=== PATIENT | male | born 1970 | race Caucasian/White ===

== ENCOUNTER → 2017-09-12 06:56 | Outpatient (CLI) | payer OTHER, SELFPAY ==
[2017-09-12 09:25] LABS: AST(SGOT) 19 U/L (15-37); Alanine Aminotransfer ALT/SGPT 40 U/L (16-61); Albumin, Serum 3.6 g/dL (3.2-5.0); Alkaline Phosphatase 78 U/L (45-117); Anion Gap 8 (5-15); BUN 18 mg/dL (7-18); BUN/Creat Ratio 19.8 RATIO (10-20); Chloride 105 mmol/L (98-107); Cholesterol 89 mg/dL (200); Creatinine, Serum 0.91 mg/dL (0.70-1.30); EST Glomerular Filtration Rate 96 mL/min (>60); Est Glom Filt Rate - Afr Amer 116 mL/min (>60); Globulin 3.6 g/dL (2.2-4.2); Glucose 123 mg/dL (74-106); High Density Lipoprotein 37 mg/dL; Potassium 3.9 mmol/L (3.5-5.1); Protein, Total 7.2 g/dL (6.4-8.2); Sodium Level 141 mmol/L (136-145); Thyroid Stim Hormone (TSH) 1.99 uIU/mL (0.358-3.74); Triglycerides 90 mg/dL; Very Low Density Lipoprotein 18 mg/dL (5-40)
== END ==
PROVIDERS: Family Provider Family Medicine; PCP Family Medicine; Visit Provider Family Medicine
DX: E11.65 Type 2 diabetes mellitus with hyperglycemia (principal)
CPT/HCPCS: 36415; 80053; 80061; 84443

== ENCOUNTER → 2017-12-27 08:38 | Outpatient (CLI) | payer OTHER, SELFPAY ==
[2017-12-27 09:41] LABS: Anion Gap 7 (5-15); BUN 16 mg/dL (7-18); BUN/Creat Ratio 16.4 RATIO (10-20); Calcium,Total 8.3 mg/dL (8.5-10.1); Chloride 105 mmol/L (98-107); Creatinine, Serum 0.98 mg/dL (0.70-1.30); EST Glomerular Filtration Rate 88 mL/min (>60); Est Glom Filt Rate - Afr Amer 107 mL/min (>60); Glucose 133 mg/dL (74-106); Potassium 3.9 mmol/L (3.5-5.1); Sodium Level 139 mmol/L (136-145)
== END ==
PROVIDERS: Family Provider Family Medicine; PCP Family Medicine; Visit Provider Family Medicine
DX: I10 Essential (primary) hypertension (principal)
CPT/HCPCS: 36415; 80048

== ENCOUNTER → 2018-04-02 09:42 | Outpatient (CLI) | payer OTHER, SELFPAY ==
--- NOTE | 2018-04-02 09:45 | RAD_ITS ---
HISTORY: LEFT SHOULDER PAIN AND DECREASING ROM X2 MONTHS, NKI COMPARISON: None FINDINGS: XR Shoulder 4 views No dislocation or acute fracture. The left glenohumeral relationship appears normal. No soft tissue calcifications. Left AC joint is preserved. Remote, healed fracture of the mid left clavicle. RAD/Shoulder min 2 Views IMPRESSION: 1. Negative left shoulder. 2. Remote, healed fracture of the mid left clavicle. at 0656 Reported and signed by: Kalyan Mcgraw MD Electronically Signed: Kalyan Mcgraw, at 6:54 EST Tel , Service support ,
--- OUTSIDE RECORDS SUMMARY | 2018-05-28 11:02 | XMS RPT_ITS ---
:1970 Author Organization OHIP Care Team Providers Name Role Phone Peterson Smith Attending Unavailable Peterson Smith Referring Unavailable Peetrson Smith Primary Care Unavailable Peterson Smith Attending Unavailable Peterson Smith Referring Unavailable Peterson Smith Primary Care Unavailable Peterson Smith Attending Unavailable Peterson Smith Referring Unavailable Peterson Smith Primary Care Unavailable PROBLEMS PROBLEMS DATE TYPE CONDITION / CODE ATTENDING STATUS SOURCE 04/02/2018 Unknown M75.00 - Adhesive Sarah Active Cole capsulitis of [facility] shoulder / Repository M75.00(ICD-10) PROCEDURES PROCEDURES No Procedure Records FoundRESULTS RESULTS SHOULDER MIN 2 VIEWS Observed: 04/02/2018 Status: F Source: ALAMO 9:45 AM [facility] REPOSITORY [facility] Imaging Services [address] [place] [address] Shoulder min 2 Views MR#: [id number] Acct: [id number] Name: MEDHAT CORREA Rep #: [id number] : 1970 M 48 From: Kalyan Mcgraw MD PCP: Peterson Smith MD Status: REG CLI Study: Shoulder min 2 Views Date of Exam: 04/02/18 Exam# [id number] Ordering Dr: Maximiliano Smith MD HISTORY: LEFT SHOULDER PAIN AND DECREASING ROM X2 MONTHS, NKI COMPARISON: None FINDINGS: XR Shoulder 4 views No dislocation or acute fracture. The left glenohumeral relationship appears normal. No soft tissue calcifications. Left AC joint is preserved. Remote, healed fracture of the mid left clavicle. RAD/Shoulder min 2 Views IMPRESSION: 1. Negative left shoulder. 2. Remote, healed fracture of the mid left clavicle. at 0656 Reported and signed by: Kalyan Mcgraw MD Electronically Signed: Kalyan Mcgraw, at 6:54 EST Tel , Service support , CC: Peterson Smith MD Seismograph Computer: Signed BASIC METABOLIC Collected: 12/27/2017 Status: F Source: COLE PROFILE (BMP) 8:45 AM [facility] REPOSITORY Order Comment: Order Date: 09/25/17 Order Info: [id number] - BMP TYPE CODE TESTS RESULT OUT OF RANGE REFERENCE UNITS LAB L501.0100 74-106 mg/dL High GLU 133 Result Comment: Fasting Glucose result greater than or equal to 126 mg/dL suggests DIABETES MELLITUS per A.D.A. criteria. Please note revised GLUCOSE reference range effective 2017. LAB L501.1000 7-18 mg/dL Normal BUN 16 LAB L501.1100 0.70-1.30 mg/dL Normal CREAT,SERUM 0.98 Result Comment: The validity of the calculated GFR AND GFRAA in patients over 70 years has not been determined. Clinical correlation is essential. LAB L501.1110 >60 mL/min Normal EST GFR 88 Result Comment: Non- GFR Calc LAB L501.1115 >60 mL/min Normal EST GFR - AA 107 Result Comment: GFR Calc LAB L501.1300 10-20 RATIO Normal BUN/CRE 16.4 LAB L501.2200 8.5-10.1 mg/dL Low CA 8.3 LAB L501.5300 136-145 mmol/L NA Normal 139 LAB L501.5600 3.5-5.1 mmol/L K Normal 3.9 LAB L501.5900 98-107 mmol/L CL Normal 105 LAB L501.6100 21.0-32.0 mmol/L Normal CO2 27.0 LAB L501.6200 5-15 Normal GAP 7 Performed By: #### L500.2500 #### [facility] [place], [address] COMPREHENSIVE METABOLIC Collected: 09/12/2017 Status: F Source: COLE GLOVER 7:02 AM [facility] REPOSITORY Order Comment: Order Date: 05/22/17 Order Info: [id number] - CMP Order Info: [id number] - LIPID Order Info: 3016-3 - TSH TYPE CODE TESTS RESULT OUT OF RANGE REFERENCE UNITS LAB L501.0100 74-106 mg/dL High GLU 123 Result Comment: Fasting Glucose result from 100 to 125 mg/dL suggests IMPAIRED HOMEOSTASIS per A.D.A. criteria. Please note revised GLUCOSE reference range effective 2017. LAB L501.1000 7-18 mg/dL Normal BUN 18 LAB L501.1100 0.70-1.30 mg/dL Normal CREAT,SERUM 0.91 Result Comment: The validity of the calculated GFR AND GFRAA in patients over 70 years has not been determined. Clinical correlation is essential. LAB L501.1110 >60 mL/min Normal EST GFR 96 Result Comment: Non- GFR Calc LAB L501.1115 >60 mL/min Normal EST GFR - AA 116 Result Comment: GFR Calc LAB L501.1300 10-20 RATIO Normal BUN/CRE 19.8 LAB L501.1500 6.4-8.2 g/dL T Normal PROT 7.2 LAB L501.1800 3.2-5.0 g/dL Normal ALB 3.6 LAB L501.1950 2.2-4.2 g/dL Normal GLOB 3.6 LAB L501.2000 0.9-2.4 RATIO Normal A/G 1.0 LAB L501.2200 8.5-10.1 mg/dL Low CA 8.0 LAB L501.4100 15-37 U/L Normal AST 19 LAB L501.4305 45-117 U/L Normal ALK P 78 LAB L501.4405 16-61 U/L Normal ALT 40 LAB L501.4600 0.20-1.00 mg/dL T Normal BILI 0.80 LAB L501.5300 136-145 mmol/L NA Normal 141 LAB L501.5600 3.5-5.1 mmol/L K Normal 3.9 LAB L501.5900 98-107 mmol/L CL Normal 105 LAB L501.6100 21.0-32.0 mmol/L Normal CO2 28.0 LAB L501.6200 5-15 Normal GAP 8 Performed By: #### L500.4050, L500.4100, L501.9520 #### [facility] [address] [place], [place], [address] LIPID PROFILE Collected: 09/12/2017 Status: F Source: COLE 7:02 AM [facility] REPOSITORY Order Comment: Order Date: 05/22/17 Order Info: [id number] - CMP Order Info: [id number] - LIPID Order Info: [id number] - TSH TYPE CODE TESTS RESULT OUT OF RANGE REFERENCE UNITS LAB L501.4900 200 mg/dL Normal CHOL 89 Result Comment: <200 mg/dL Desirable 200-240 mg/dL Borderline >240 mg/dL High Risk LAB L501.5000 mg/dL Normal TRIG 90 Result Comment: The drugs N-Acetylcysteine and Metamizole may falsely depress this assay. Serum Triglycerides Reference Interval Normal <150 mg/dL Borderline high 150 - 199 mg/dL High 200 - 499 mg/dL Very High > or = 500 mg/dL LAB L501.6400 mg/dL Low HDL 37 Result Comment: The drugs N-Acetylcysteine and Metamizole may falsely depress this assay. Reference Range HDL <40 mg/dL Low HDL Cholesterol HDL >or= 60 mg/dL High HDL Cholesterol LAB L501.6500 0-130 mg/dL Normal LDL 34 LAB L501.6600 5-40 mg/dL Normal VLDL 18 Performed By: #### L500.4050, L500.4100, L501.9520 #### [facility] [address] [place], [place], [address] THYROID STIM HORMONE Collected: 09/12/2017 Status: F Source: COLE (TSH) 7:02 AM [facility] REPOSITORY Order Comment: Order Date: 05/22/17 Order Info: [id number] - CMP Order Info: [id number] - LIPID Order Info: [id number] - TSH TYPE CODE TESTS RESULT OUT OF RANGE REFERENCE UNITS LAB L501.9520 0.358-3.74 uIU/mL Normal TSH 1.99 Performed By: #### L500.4050, L500.4100, L501.9520 #### [facility] [address] [place], [address] ALLERGIES ALLERGIES No Allergies Records FoundENCOUNTERS ENCOUNTERS ADMIT/DISCHARGE ACCOUNT ADMITTING ENCOUNTER LOCATION SOURCE NUMBER CLASS 04/02/2018 [id number] [facility] ing:MTRAD Repository 12/27/2017 [id number] Ambulatory [facility] 4 [facility] ing:LAB Repository 09/12/2017 [id number] [facility] 6 [facility] ing:LAB Repository PAYERS PAYERS ENCOUNTER GUARANTOR PAYER SUBSCRIBER SOURCE 04/02/2018 Rivera Primary Medhat Gonzales [id number] Insurance:[facility]: [facility] Number: [id number] [facility] [address]Faf: [id number] Repository Date:[id number] [address] [address]RY: 04/02/2018 Secondary NOT GIVENUNK Cole Insurance:SELF PAY [facility] Number: Effective Repository Date:2018-04-02 12/27/2017 Rivera Primary Medhat Gonzales [id number] Insurance:[facility]: [facility] Number: [id number] [facility] [address]Fgu: [id number] Repository Date:3925-44-69QC [address] () [address] [address]BE: 12/27/2017 Secondary NOT GIVENUNK Cole Insurance:SELF PAY [facility] Number: Effective Repository Date:2017-12-27 09/12/2017 Rivera Primary Mehdat Gonzales [id number] Insurance:[facility]: [facility] Number: [id number] [facility] [address]Fyz: [id number] Repository [phone] Date:1249-73-26AK [address] () [id number] [address]IV: 09/12/2017 Secondary NOT GIVENUNK [place] Insurance:SELF PAY [facility]: Effective Repository Date:2017-09-12
== END ==
PROVIDERS: Family Provider Family Medicine; PCP Family Medicine; Referring Provider Family Medicine; Visit Provider Family Medicine
DX: M75.02 Adhesive capsulitis of left shoulder (principal)
CPT/HCPCS: 73030

== ENCOUNTER → 2018-09-23 07:17 | Outpatient (CLI) | payer OTHER, SELFPAY ==
[2018-09-23 08:34] LABS: Anion Gap 6 (5-15); BUN 15 mg/dL (7-18); BUN/Creat Ratio 15.8 RATIO (10-20); Calcium,Total 8.8 mg/dL (8.5-10.1); Chloride 106 mmol/L (98-107); Cholesterol 110 mg/dL (200); Creatinine, Serum 0.95 mg/dL (0.70-1.30); EST Glomerular Filtration Rate 91 mL/min (>60); Est Glom Filt Rate - Afr Amer 110 mL/min (>60); Glucose 145 mg/dL (74-106); High Density Lipoprotein 39 mg/dL; Potassium 4.1 mmol/L (3.5-5.1); Sodium Level 142 mmol/L (136-145); Triglycerides 93 mg/dL; Very Low Density Lipoprotein 19 mg/dL (5-40)
== END ==
PROVIDERS: Family Provider Family Medicine; PCP Family Medicine; Referring Provider Family Medicine; Visit Provider Family Medicine
DX: I10 Essential (primary) hypertension (principal)
CPT/HCPCS: 36415; 80048; 80061

== ENCOUNTER → 2019-07-06 07:59 | Outpatient (CLI) | payer OTHER, SELFPAY ==
[2019-07-06 08:48] LABS: AST(SGOT) 21 U/L (15-37); Alanine Aminotransfer ALT/SGPT 53 U/L (16-61); Albumin, Serum 3.7 g/dL (3.2-5.0); Alkaline Phosphatase 73 U/L (45-117); Anion Gap 4 (5-15); BUN 21 mg/dL (7-18); BUN/Creat Ratio 19.3 RATIO (10-20); Calcium,Total 8.6 mg/dL (8.5-10.1); Chloride 104 mmol/L (98-107); Cholesterol 167 mg/dL (200); Creatinine, Serum 1.09 mg/dL (0.70-1.30); EST Glomerular Filtration Rate 77 mL/min (>60); Est Glom Filt Rate - Afr Amer 93 mL/min (>60); Globulin 3.7 g/dL (2.2-4.2); Glucose 167 mg/dL (74-106); High Density Lipoprotein 42 mg/dL; Potassium 4.4 mmol/L (3.5-5.1); Protein, Total 7.4 g/dL (6.4-8.2); Sodium Level 138 mmol/L (136-145); Triglycerides 139 mg/dL; Very Low Density Lipoprotein 28 mg/dL (5-40)
== END ==
PROVIDERS: PCP Family Medicine; Referring Provider Family Medicine; Visit Provider Family Medicine
DX: E11.65 Type 2 diabetes mellitus with hyperglycemia (principal)
CPT/HCPCS: 36415; 80053; 80061

== ENCOUNTER → 2020-03-02 08:35 | Outpatient (CLI) | payer OTHER, SELFPAY ==
[2020-03-02 10:56] LABS: AST(SGOT) 21 U/L (15-37); Alanine Aminotransfer ALT/SGPT 56 U/L (16-61); Albumin, Serum 3.8 g/dL (3.2-5.0); Alkaline Phosphatase 81 U/L (45-117); Anion Gap 7 (5-15); BUN 19 mg/dL (7-18); Calcium,Total 8.7 mg/dL (8.5-10.1); Chloride 103 mmol/L (98-107); Cholesterol 112 mg/dL (200); Creatinine, Serum 1.12 mg/dL (0.70-1.30); EST Glomerular Filtration Rate 74 mL/min (>60); Est Glom Filt Rate - Afr Amer 90 mL/min (>60); Globulin 3.7 g/dL (2.2-4.2); Glucose 203 mg/dL (74-106); High Density Lipoprotein 40 mg/dL; Potassium 4.1 mmol/L (3.5-5.1); Protein, Total 7.5 g/dL (6.4-8.2); Sodium Level 138 mmol/L (136-145); Thyroid Stim Hormone (TSH) 1.47 uIU/mL (0.358-3.74); Triglycerides 208 mg/dL; Very Low Density Lipoprotein 42 mg/dL (5-40)
== END ==
PROVIDERS: PCP Family Medicine; Referring Provider Family Medicine; Visit Provider Family Medicine
DX: E11.65 Type 2 diabetes mellitus with hyperglycemia (principal)
CPT/HCPCS: 36415; 80053; 80061; 84403; 84443

== ENCOUNTER → 2021-05-03 16:29 | Outpatient (CLI) | payer OTHER, SELFPAY | PROVIDERS: PCP Family Medicine; Visit Provider Family Medicine | DX: U07.1 COVID-19 (principal) | CPT/HCPCS: 87635; U0003; U0005 ==

== ENCOUNTER 2021-08-08 07:14 | Outpatient (CLI) | payer OTHER, SELFPAY ==
[2021-08-08 09:37] LABS: ALB/GLOB Ratio 1.1 RATIO (0.9-2.4); AST(SGOT) 12 U/L (15-37); Alanine Aminotransfer ALT/SGPT 31 U/L (16-61); Albumin, Serum 3.7 g/dL (3.2-5.0); Alkaline Phosphatase 69 U/L (45-117); Anion Gap 5 (5-15); BUN 19 mg/dL (7-18); BUN/Creat Ratio 19.5 RATIO (10-20); Calcium,Total 8.4 mg/dL (8.5-10.1); Chloride 107 mmol/L (98-107); Cholesterol 114 mg/dL (200); Creatinine, Serum 0.97 mg/dL (0.70-1.30); EST Glomerular Filtration Rate 87 mL/min (>60); Est Glom Filt Rate - Afr Amer 105 mL/min (>60); Globulin 3.4 g/dL (2.2-4.2); Glucose 154 mg/dL (74-106); High Density Lipoprotein 39 mg/dL; Potassium 3.7 mmol/L (3.5-5.1); Protein, Total 7.1 g/dL (6.4-8.2); Sodium Level 139 mmol/L (136-145); Thyroid Stim Hormone (TSH) 1.58 uIU/mL (0.358-3.74); Triglycerides 140 mg/dL; Very Low Density Lipoprotein 28 mg/dL (5-40)
== END 2021-08-08 23:59 | disposition home or self-care (01) ==
LOC: LAB 07:16
PROVIDERS: PCP Family Medicine; Referring Provider Family Medicine; Visit Provider Family Medicine
DX: E11.9 Type 2 diabetes mellitus without complications (principal)
CPT/HCPCS: 36415; 80053; 80061; 84403; 84443

== ENCOUNTER → 2022-04-10 | Outpatient (CLI) | payer OTHER, SELFPAY ==
--- NOTE | 2022-04-10 | LES_PTH ---
PATIENT: URBANO CORREA [facility][id number] AGE/SX: 52/M ROOM: RE04/10/[address]: Dr. Peterson Smith MD : 1970 BED: DIS: 04/10/2022 SPEC #: [id number] RECD: 04/10/22 11:50 STATUS: ALLYSON CASTANON #: [id number] ALTHEA: 04/10/22 00:[address]: Peterson Smith DEPT: SURGICAL PATHOLOGY RECD BY: Gigi Bull Tissues: Skin of upper extremity and shoulder Procedures: Surgery Specimen Level IV HEADER OPERATION: Punch biopsy PRE-OP DIAGNOSIS: Upper left shoulder ? SCC TISSUE SUBMITTED: Upper left shoulder MICROSCOPIC DIAGNOSIS Lesion of upper left shoulder, punch biopsy: Compound nevus. AM:kerrie 04/11/2022 COMMENT Case has been reviewed in consultation with Dr. Nava who concurs with the above diagnosis. IDC:SJ MICROSCOPIC DESCRIPTION Slides are reviewed. GROSS DESCRIPTION Received is one container labeled with the patient's name and not further designated. The specimen consists of a punch biopsy of chiu-white skin measuring 0.4 cm in length and 0.5 cm in diameter. The entire specimen is submitted in one cassette. / RAJI:kerrie 04/10/2022 TC:5 [facility]: [id number]
== END | disposition home or self-care (01) ==
LOC: LABSPEC 09:49
PROVIDERS: PCP Family Medicine; Referring Provider Family Medicine; Visit Provider Family Medicine
DX: L98.9 Disorder of the skin and subcutaneous tissue, unspecified (principal)
CPT/HCPCS: 88305

== ENCOUNTER → 2023-08-07 | Outpatient (CLI) | payer OTHER, SELFPAY ==
[2023-08-07 11:27] LABS: ALB/GLOB Ratio 1.1 RATIO (0.9-2.4); AST(SGOT) 14 U/L (15-37); Alanine Aminotransfer ALT/SGPT 38 U/L (16-61); Albumin, Serum 3.8 g/dL (3.2-5.0); Alkaline Phosphatase 74 U/L (45-117); Anion Gap 3 (5-15); BUN 19 mg/dL (7-18); BUN/Creat Ratio 18.6 RATIO (10-20); Calcium,Total 8.7 mg/dL (8.5-10.1); Chloride 107 mmol/L (98-107); Cholesterol 109 mg/dL (200); Creatinine, Serum 1.02 mg/dL (0.70-1.30); EST Glomerular Filtration Rate 82 mL/min (>60); Est Glom Filt Rate - Afr Amer 99 mL/min (>60); Globulin 3.5 g/dL (2.2-4.2); Glucose 130 mg/dL (74-106); High Density Lipoprotein 41 mg/dL; PSA,Total - Annual Screen 4.06 ng/mL (0.00-4.00); Potassium 4.3 mmol/L (3.5-5.1); Protein, Total 7.3 g/dL (6.4-8.2); Sodium Level 138 mmol/L (136-145); Thyroid Stim Hormone (TSH) 1.28 uIU/mL (0.358-3.74); Triglycerides 103 mg/dL; Very Low Density Lipoprotein 21 mg/dL (5-40)
== END | disposition home or self-care (01) ==
LOC: LAB 10:34
PROVIDERS: PCP Family Medicine; Referring Provider Family Medicine; Visit Provider Family Medicine
DX: E11.65 Type 2 diabetes mellitus with hyperglycemia (principal); Z12.5 Encounter for screening for malignant neoplasm of prostate
CPT/HCPCS: 36415; 80053; 80061; 84153; 84403; 84443; G0103

== ENCOUNTER → 2024-06-02 | Outpatient (CLI) | payer OTHER, SELFPAY ==
[2024-06-02 11:15] LABS: Absolute Lymphocyte Count 1.31 X10^3/uL (0.83-4.51); Absolute Neutrophil Count 6.6 X10^3/uL (2.0-7.7); Basophil# 0.06 X10^3/uL; Basophil% 0.7 % (0-1); Eosinophil# 0.07 X10^3/uL; Eosinophils% 0.8 % (0-5); Hematocrit 50.1 % (40-54); Hemoglobin 17.8 g/dL (13.0-16.5); Lymphocyte # 1.31 X10^3/ul (0.83-4.51); Lymphocyte % 15.1 % (19-41); Mean Corp Hgb Conc 35.5 g/dL (32-36); Mean Corpuscular Hgb 31.7 pg (27.0-32.0); Mean Corpuscular Volume 89.3 fL (80-94); Mean Platelet Vol. 10.4 fl (6.2-12.0); Monocyte# 0.52 X10^3/uL; NRBC Flagged by Analyzer 0 % (0-5); Neutrophil # 6.61 X10^3/uL (2.7-7.7); Neutrophil % 76.2 % (47-70); Platelet Count 163 K/mm3 (150-450); RBC Distribution Width CV 12.4 % (11.6-14.6); RBC Distribution Width SD 40.6 fl (35.1-43.9); Red Blood Count 5.61 M/mm3 (4.6-6.2); White Blood Count 8.7 K/mm3 (4.4-11.0)
[2024-06-03 13:07] LABS: PSA, Free 0.75 ng/mL; PSA, Free % 17.1 % (.)
== END | disposition home or self-care (01) ==
LOC: LAB 10:50
PROVIDERS: Nurse Practitioner Acute Care; PCP Family Medicine; Referring Provider Family Medicine; Visit Provider Family Medicine
DX: R19.5 Other fecal abnormalities (principal); R97.20 Elevated prostate specific antigen [PSA]
CPT/HCPCS: 36415; 84153; 84154; 85025

== ENCOUNTER 2024-06-17 10:18 | Day surgery (SDC) | payer OTHER, SELFPAY ==
[2024-06-17] VITALS (7 sets, daily range): BP systolic 115–144; BP diastolic 80–98; PULSE 81–98; RESP 16; TEMP 36.2–36.8; O2SAT 96–98; BMI 28.6
--- NOTE | 2024-06-17 11:06 | PRE.ANES_ITS ---
ASA Classification* ASA Classification ASA Classification: 2 Assessment & Plan Anesthesia* Anesthesia Assessment Anesthesia Assessment: Discussed sedation and/or anesthesia options, risks, benefits, and alternatives with patient/parents/legal guardian/POA. Questions invited. The patient/parents/legal guardian/POA seems to understand and agrees to proceed with anesthesia plan. Reviewed the physical assessment, medical history, allergy history and patient home medications list prior to surgery/procedure/anesthetic and documented any changes. Performed airway and anesthesia risk assessments. Anesthesia Type Anesthesia Type: MAC History Source History Obtained from:: Patient and Chart Anesthesia Focused Assessment* Temperature: 97.9 F Pulse Rate: 98 Blood Pressure: 144/94 Respiratory Rate: 16 Pulse Ox: 97 Oxygen Delivery Method: Room Air Airway Assessment Mouth opens: >3 cm Mallampati Score: II Teeth Condition: Caps/Crowns (Patient has a crown left lower molar. It is tight.) Neck Range of motion (ROM): Full ROM Focused Labs Anesthesia Preop lab: CBC WBC 8.7 K/mm3 (4.4-11.0) 06/02/24 10:53 06/02/24 RBC 5.61 M/mm3 (4.6-6.2) 06/02/24 10:53 06/02/24 Hgb 17.8 g/dL (13.0-16.5) H 06/02/24 10:53 5 Hct 50.1 % (40-54) 06/02/24 10:53 06/02/24 Plt Count 163 K/mm3 (150-450) 06/02/24 10:53 06/02/24 CHEMISTRY Potassium 4.3 mmol/L (3.5-5.1) 08/07/23 10:41 08/07/23 Sodium 138 mmol/L (136-145) 08/07/23 10:41 08/07/23 BUN 19 mg/dL (7-18) H 08/07/23 10:41 08/07/23 Creatinine 1.02 mg/dL (0.70-1.30) 08/07/23 10:41 08/07/23 Glucose 130 mg/dL (74-106) H 08/07/23 10:41 08/07/23 TSH 1.28 uIU/mL (0.358-3.74) 08/07/23 10:41 COAG Pre-Assessment Diagnosis/Proposed Procedure Planned Operative Procedure(s): COLONOSCOPY Anesthesia History 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 When Was Last Pacemaker Check QUESTION #4 FULL TEXT: You/Your Family Experience fever (hyperthermia) with Anesthesia Last Oral Intake Last Oral intake: Last Oral Intake NPO since 04:00 06/17/24 10:40 Meds taken in AM with sips of water? Meds patient instructed to take am of surgery Any additional information?: Yes NPO since: 04:00 (Patient finished prep at 4 AM.) PONV PONV - medicare sales executive: PONV - medicare sales executive Female No 06/09/24 12:34 HX of Motion Sickness No 06/09/24 12:34 HX of N/V After Surgery No 06/09/24 12:34 Non-Smoker Yes 06/09/24 12:34 Duration of Surgery greater No 06/09/24 12:34 than 60 minutes Number of Risk Factors 1 06/09/24 12:34 PONV Score Low Risk 06/09/24 12:34 Height & Weight Height & Weight: Anesthesia: Height & Weight Height 6 ft 1 in 06/17/24 10:40 Weight: 98.43 kg 06/17/24 10:40 Body Mass Index (BMI) 28.6 06/17/24 10:40 Respiratory Assessment Respiratory Assessment - medicare sales executive: Respiratory Tract Infection Hx - medicare sales executive Hx Respiratory Tract Infection No 06/09/24 12:34 STOP Sleep Apnea STOP Sleep Apnea - medicare sales executive: STOP Sleep Apnea - medicare sales executive Hx Hypertension Yes 06/09/24 12:34 Hx Sleep Apnea Yes 06/09/24 12:34 CPAP No 06/09/24 12:34 BIPAP Yes 06/09/24 12:34 Do you snore loudly (louder than talking or can be heard Do you often feel tired/ fatigued/ sleepy during daytime? Has anyone observed you stop breathing during sleep? STOP Results Positive 06/09/24 12:34 QUESTION #5 FULL TEXT : Do you snore loudly (louder than talking or can be heard through closed doors)? 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 Specify any problems Hx of Preganancy in last 3 N/A 06/09/24 12:34 Months Nurse Filling Out Transfusion VLEHMAN 06/09/24 12:34 & Questions: Date: 06/09/24 06/09/24 12:34 Time: 13:20 06/09/24 12:34 Patient unable to answer at this time (ie. confused, unrespo /Reproduction History /Reproductive History - medicare sales executive: /Reproductive Hx- medicare sales executive Hx Now Gestational Age (in weeks): EDC: Hx Hx [facility] History Wears glasses Wears contact lenses Diabetes Prostate disease High cholesterol Dietary restriction Non-smoker BiPAP (biphasic positive airway pressure) dependence Sleep apnea Asthma History of edema Hypertension Torn ACL (anterior cruciate ligament) Home Medications ?Medication ?Instructions ?Recorded ?Last Taken ?Type albuterol sulfate 90 mcg/actuation 2 puff inhalation Q 6H PRN 06/01/24 Unknown History aerosol inhaler shortness of breath or wheez ing fluticasone 100 mcg-salmeterol 50 1 inh inhalation BID 06/01/24 Unknown History mcg/dose blistr powdr for inhalation (Wixela Inhub) glimepiride 4 mg tablet 4 mg PO BID 06/01/24 Unknown History losartan 100 mg tablet 100 mg PO QDAY 06/01/2406/05 History montelukast 10 mg tablet 10 mg PO QDAY 06/01/24 Unkno wn History (Singulair) tadalafil 20 mg tablet (Cialis) 20 mg PO .Q72HR PRN se xual activity 06/01/24 Unknown History dapagliflozin propanediol 10 mg 10 mg PO QDAY 06/02/24 06/14/24 History tablet (Farxiga) metformin 1,000 mg tablet 1,000 mg PO BID 06/02/24 Unk nown History peg 3350-sod sulf,llgeh-ixo-nio See Rx Instructions PO .COMPLEX #2 06/02/24 Unknown Rx 178.7-7.3-0.5-1.12-0.9 gram oral mL soln (Suflave) semaglutide 1 mg/dose (2 mg/1.5 1.25 mg subcut WHITAKER 05/0606/06/24 History mL) subcutaneous pen injector atorvastatin 10 mg tablet 10 mg PO DAILY 06/09/24 Unkn own History Allergy/AdvReac Type Severity Reaction Status Date / Time amoxicillin AdvReac Intermediate Hives Verified 06/17/24 10:39 cat dander (cats) AdvReac Intermediate Other Verified 06/17/24 10:39 lisinopril AdvReac Intermediate cough Verified 06/17/24 10:39 mold (mold spores) AdvReac Intermediate Other Verified 06/17/24 10:39 Family History Grandfather Heart disease Grandmother Breast cancer Surgical History History of repair of ACL Social History household members: spouse and children Smoking Status: Never smoker what type of physical activity do you participate in: walking frequency: 1-2 times per week Review of Systems (Anesthesia) ROS Narrative System reviewed and no additional complaints, except as documented.
[2024-06-17 11:10] LABS: Bedside Glucose 146 mg/dL (74-106)
--- NOTE | 2024-06-17 11:30 | COLBX_PTH ---
PATIENT: URBANO CORREA LOC: EN U#:[id number] AGE/SX: 54/M ROOM: RE06/17/[address]: Dr. Guy Calero DO : 1970 BED: DIS: 06/17/2024 SPEC #: [id number] RECD: 06/17/24 14:27 STATUS: ALLYSON REQ #: [id number] ALTHEA: 06/17/24 11:[address]: Guy Calero DEPT: SURGICAL PATHOLOGY RECD BY: Deepa Viveros ENTERED: 06/18/24 08:24 SP TYPE: COLON BX OT DR: Dr. Peterson Smith MD Tissues: A - Sigmoid colon biopsy B - Rectum, NOS Procedures: Surgery Specimen Level IV HEADER OPERATION: Colonoscopy, polypectomy PRE-OP DIAGNOSIS: Positive colorectal cancer screening using Cologuard test TISSUE SUBMITTED: A- Sigmoid colon polyp, B- Rectum polyp MICROSCOPIC DIAGNOSIS A. Sigmoid colon polyp, polypectomy: A fragment of colonic mucosa, no pathologic diagnosis. Fecal material B. Rectal polyp, polypectomy: Fragments of hyperplastic polyp. RAJI. 06/21/2024 MICROSCOPIC DESCRIPTION Slides are reviewed. GROSS DESCRIPTION A. Received in fixative is one container labeled with the patient's name and designated Sigmoid colon polyp. The specimen consists of two irregular fragments of light chiu soft tissue that in aggregate measure 0.6 x 0.4 x 0.1 cm. The specimen is totally submitted in one cassette. B. Received in fixative is one container labeled with the patient's name and designated Rectum polyp. The specimen consists of multiple irregular fragments of light chiu soft tissue that in aggregate measure 2.1 x 0.5 x 0.2 cm. The specimen is totally submitted in one cassette. 06/18/2024 TC:1 CPT:34129b3
--- NOTE | 2024-06-17 11:45 | PCM.HP.STD ---
HPI - General General Date of Admission: 06/17/24 Date of Service: 06/17/24 Chief Complaint: Screening colonoscopy HPI Narrative URBANO CORREA, is a 54 M who presents today for screening colonoscopy. He has never had a colonoscopy in the past. - March 2023 - positive Cologuard - denies any change in bowel habits, pain or bleeding - started Ozempic 1 year ago - 20lb weight loss - denies any N/V - family h/o colon cancer in his father [facility] Medical History Wears glasses Wears contact lenses Diabetes Prostate disease High cholesterol Dietary restriction Non-smoker BiPAP (biphasic positive airway pressure) dependence Sleep apnea Asthma History of edema Hypertension Torn ACL (anterior cruciate ligament) Home Medications ?Medication ?Instructions ?Recorded ?Last Taken ?Type albuterol sulfate 90 mcg/actuation 2 puff inhalation Q6H PRN 06/01/24 Unknown History aerosol inhaler shortness of breath or wheezing fluticasone 100 mcg-salmeterol 50 1 inh inhalation BID 06/01/24 Unknown History mcg/dose blistr powdr for inhalation (Wixela Inhub) glimepiride 4 mg tablet 4 mg PO BID 06/01/24 Unknown History losartan 100 mg tablet 100 mg PO QDAY 06/01/24 06/16/24 History montelukast 10 mg tablet 10 mg PO QDAY 06/01/24 Unknown History (Singulair) tadalafil 20 mg tablet (Cialis) 20 mg PO .Q72HR PRN sexual activity 06/01/24 Unknown History dapagliflozin propanediol 10 mg 10 mg PO QDAY 06/02/24 06/14/24 History tablet (Farxiga) metformin 1,000 mg tablet 1,000 mg PO BID 06/02/24 Unknown History peg 3350-sod sulf,eoezz-uij-dxc See Rx Instructions PO .COMPLEX #2 06/02/24 Unknown Rx 178.7-7.3-0.5-1.12-0.9 gram oral mL soln (Suflave) semaglutide 1 mg/dose (2 mg/1.5 1.25 mg subcut WHITAKER 06/02/24 06/06/24 History mL) subcutaneous pen injector atorvastatin 10 mg tablet 10 mg PO DAILY 06/09/24 Unknown History Allergy/AdvReac Type Severity Reaction Status Date / Time amoxicillin AdvReac Intermediate Hives Verified 06/17/24 10:39 cat dander (cats) AdvReac Intermediate Other Verified 06/17/24 10:39 lisinopril AdvReac Intermediate cough Verified 06/17/24 10:39 mold (mold spores) AdvReac Intermediate Other Verified 06/17/24 10:39 Family History Grandfather Heart disease Grandmother Breast cancer Surgical History History of repair of ACL Social History household members: spouse and children Smoking Status: Never smoker what type of physical activity do you participate in: walking frequency: 1-2 times per week ROS Constitutional Constitutional: Denies fatigue, fever(s), poor appetite, weight gain or weight loss Gastrointestinal Gastrointestinal: Denies belching, bloating, change in bowel habits, change in stool character, chewing difficulty, coffee ground emesis, constipation, cramping, diarrhea, dyspepsia, dysphagia, early satiety, excessive flatus, fecal incontinence, heartburn, hematemesis, hematochezia, hemorrhoids, loose stools, melena, nausea, odynophagia, rectal bleeding, tenesmus, vomiting or weight changes Vital Signs Vital Signs Vital Signs: 06/17/24 10:40 06/17/24 10:40 06/17/24 11:13 Temperature 97.9 F 97.9 F Temperature Source Temporal Pulse Rate 98 98 Respiratory Rate 16 16 Respiratory Pattern Normal Blood Pressure 144/94 H 144/94 H Blood Pressure Mean 110 Blood Pressure Source Monitor Blood Pressure Position Semi-Fowlers Blood Pressure Location Right Arm Pulse Ox 97 97 Oxygen Delivery Method Room Air Room Air Weight Weight: 217 lb Body Mass Index (BMI) 28.6 Physical Exam Const alert, oriented x3, no apparent distress and healthy appearing General Appearance: cooperative GI normal to inspection, nondistended, normoactive bowel sounds, soft to palpation, non-tender and non-distended Percussion: normal to percussion Rectal Exam: deferred Results Lab / Micro Data Labs: Laboratory Results - last 24 hr 06/17/24 10:44: POC Glucose 146 H Assessment & Plan Assessment/Plan (1) Positive colorectal cancer screening using Cologuard test: PLAN: Plan 54y/o male presents for consultation with a positive Cologuard. Cologuard was completed 03/25/2023 and this yielded a positive result. His family history is significant for father with colon CA. He is asymptomatic and will proceed with colonoscopy at this time.
--- NOTE | 2024-06-17 12:24 | PCM.POST.ANE ---
Anesthesia: Postop Eval I Current Vital Signs Temperature: 97.1 F Pulse Rate: 87 Blood Pressure: 115/83 Respiratory Rate: 16 Pulse Ox: 98 Oxygen Delivery Method: Room Air Assessment Airway patent: Yes Spontaneous unlabored respirations: Yes Mental status: Awake and Calm nausea: No Vomiting: No Anesthesia Complication: No Fluid Hydration Crystalloid volume administer (ml): 40 Total IV fluid infused: 40 Progress Note Anesthesia document: Postop Eval 1 completed: Yes
--- NOTE | 2024-06-17 12:30 | OP.COLON_ITS ---
Patient Name: Medhat Diez Procedure Date: 06/17/2024 11:47 AM Date of : 1970 Age: 54 Procedure: Colonoscopy Indications: Screening for colorectal malignant neoplasm Providers: Guy Calero DO Medicines: Monitored Anesthesia Care Patient Profile: This is a 54 year old male. Refer to note in patient chart for documentation of history and physical. Last Colonoscopy: none. The patient's first colonoscopy is today. Complications: No immediate complications. Procedure: Pre-Anesthesia Assessment: - Prior to the procedure, a History and Physical was performed, and patient medications and allergies were reviewed. The patient is competent. The risks and benefits of the procedure and the sedation options and risks were discussed with the patient. All questions were answered and informed consent was obtained. Patient identification and proposed procedure were verified by the physician in the pre-procedure area. Mental Status Examination: alert and oriented. Airway Examination: normal oropharyngeal airway and neck mobility. Respiratory Examination: clear to auscultation. CV Examination: normal. Prophylactic Antibiotics: The patient does not require prophylactic antibiotics. Prior Anticoagulants: The patient has taken no anticoagulant or antiplatelet agents except for NSAID medication. ASA Grade Assessment: II - A patient with mild systemic disease. After reviewing the risks and benefits, the patient was deemed in satisfactory condition to undergo the procedure. The anesthesia plan was to use monitored anesthesia care (MAC). Immediately prior to administration of medications, the patient was re-assessed for adequacy to receive sedatives. The heart rate, respiratory rate, oxygen saturations, blood pressure, adequacy of pulmonary ventilation, and response to care were monitored throughout the procedure. The physical status of the patient was re-assessed after the procedure. After I obtained informed consent, the scope was passed under direct vision. Throughout the procedure, the patient's blood pressure, pulse, and oxygen saturations were monitored continuously. The colonoscope was introduced through the anus and advanced to the cecum, identified by appendiceal orifice and ileocecal valve. The colonoscopy was performed without difficulty. The patient tolerated the procedure well. The quality of the bowel preparation was adequate. Scope In: 11:56:49 AM Scope Withdrawal Time 0 hours 15 minutes 55 seconds Scope Out: 12:16:57 PM Total Procedure Duration Time 0 hours 20 minutes 8 seconds Findings: The perianal and digital rectal examinations were normal. Multiple small and large-mouthed diverticula were found in the recto-sigmoid colon and sigmoid colon. Two sessile polyps were found in the sigmoid colon. The polyps were 10 mm in size. These polyps were removed with a hot snare. Resection and retrieval were complete. Verification of patient identification for the specimen was done. Estimated blood loss was minimal. A 5 mm polyp was found in the rectum. The polyp was sessile. The polyp was removed with a jumbo cold forceps. Resection and retrieval were complete. Verification of patient identification for the specimen was done. Estimated blood loss was minimal. Impression: - Diverticulosis in the recto-sigmoid colon and in the sigmoid colon. - Two 10 mm polyps in the sigmoid colon, removed with a hot snare. Resected and retrieved. - One 5 mm polyp in the rectum, removed with a jumbo cold forceps. Resected and retrieved. Recommendation: - Repeat colonoscopy in 3 years for surveillance. - Continue present medications. Procedure Code(s): --- Professional --- 31638, Colonoscopy, flexible; with removal of tumor(s), polyp(s), or other lesion(s) by snare technique 25874, 59, Colonoscopy, flexible; with biopsy, single or multiple CPT copyright 2021 [employer]. All rights reserved. The codes documented in this report are preliminary and upon supervisor paper testing review may be revised to meet current compliance requirements. Guy Calero DO 06/17/2024 12:30:45 PM This report has been signed electronically. Number of Addenda: 0 Note Initiated On: 06/17/2024 11:47 AM
--- NOTE | 2024-06-17 12:31 | OP.CCLET_ITS ---
06/17/2024 Maximiliano Smith [address] [place] [address] Re : Colonoscopy procedure for Medhat Diez Dear Dr. Smith This procedure was performed on June. My impressions and recommendations are as follows: Impressions : - Diverticulosis in the recto-sigmoid colon and in the sigmoid colon. - Two 10 mm polyps in the sigmoid colon, removed with a hot snare. Resected and retrieved. - One 5 mm polyp in the rectum, removed with a jumbo cold forceps. Resected and retrieved. Recommendations : - Repeat colonoscopy in 3 years for surveillance. - Continue present medications. My findings are described in the full procedure note, which is enclosed. If I can be of further assistance, please feel free to contact me at . Sincerely, Guy Calero, 06/17/2024 12:30:45 PM This report has been signed electronically.
--- NOTE | 2024-06-17 18:16 | PCM.POSTANE2 ---
Anesthesia Postop Eval I Sum Postop Eval Completion status Anesthesia document: Postop Eval 1 completed: Yes Anesthesia Postop Eval I Summary Anesthesia Postop Eval I Summary: Anesthesia Postop Eval I: Assessment Summary Airway patent Yes 06/17/24 12:25 [email or web address] Spontaneous unlabored Yes 06/17/24 12:25 [email or web address] respirations Mental status Awake,Calm 06/17/24 12:25 [email or web address] nausea No 06/17/24 12:25 [email or web address] Vomiting No 06/17/24 12:25 [email or web address] Anesthesia Postop Eval I: Fluid Summary Crystalloid volume administer 40 06/17/24 12:25 [email or web address] (ml) Colloids volume administered ( ml) Blood Product volume administered (ml) Total IV fluid infused 40 06/17/24 12:25 [email or web address] Anesthesia Postop Eval I: Summary Notes Anesthesia Complication No 06/17/24 12:25 [email or web address] Anesthesia Complication Comment: Post-operative progress note Anesthesia: Postop Eval II Evaluation Mental status: Awake and Calm Pain Level: 0 nausea: No Vomiting: No Complications Anesthesia Complication: No
== END 2024-06-17 13:04 | disposition home or self-care (01) ==
LOC: EN 10:21 → AC 10:23
PROVIDERS: PCP Family Medicine; Referring Provider Family Medicine; Visit Provider Internal Medicine Gastroenterology
PROC: 0DJD8ZZ Inspection of Lower Intestinal Tract, Via Natural or Artificial Opening Endoscopic (ICD-10-PCS; CPT 45378; principal; 2024-06-17 11:25)
DX: Z12.11 Encounter for screening for malignant neoplasm of colon (principal); E11.9 Type 2 diabetes mellitus without complications; K57.30 Diverticulosis of large intestine without perforation or abscess without bleeding; K63.5 Polyp of colon; I10 Essential (primary) hypertension; K62.1 Rectal polyp; E78.00 Pure hypercholesterolemia, unspecified; G47.30 Sleep apnea, unspecified; J45.909 Unspecified asthma, uncomplicated; Z80.0 Family history of malignant neoplasm of digestive organs; Z79.84 Long term (current) use of oral hypoglycemic drugs; Z79.51 Long term (current) use of inhaled steroids; Z79.899 Other long term (current) drug therapy
CPT/HCPCS: 45380; 45385; 82962; 88305; A4216; J2405

== ENCOUNTER → 2025-01-10 | Outpatient (CLI) | payer OTHER, SELFPAY ==
--- OUTSIDE RECORDS SUMMARY | 2025-01-10 07:19 | XMS RPT_ITS | CCD ---
Author Organization [facility] Care Team Providers Care Admissions Rn Name Role Phone Anival ESQUIVEL, Arleen To Unavailable Sarah, Christgeorgier Primary Care Unavailable Friend, Guy Attending Unavailable Ranarjun, Christgeorgier Referring Unavailable Ranarjun, Christopher Primary Care Unavailable Kena Lynn Consulting Unavailable Sarah, Peterson Attending Unavailable Ranarjun, J Carloser Referring Unavailable Ranney, Christopher Primary Care Unavailable Ranarjun, J Carloser Attending Unavailable Ranney, Christopher Referring Unavailable Ranney, Christopher Primary Care Unavailable Kena Lynn Attending Unavailable Ranarjun, J Carloser Referring Unavailable Friend, Guy Consulting Unavailable Friend, Guy Attending Unavailable Ranarjun, Libradoopher Referring Unavailable Ranney, Christopher Primary Care Unavailable Allergies Allergy Classification Reported Allergen(s) Allergy Type Date of Onset Reaction(s) Facility (2 sources) amoxicillin drug allergy [facility] Work Phone: (1 source) Amoxicillin Drug Allergy [address] [facility] Repository (1 source) Lisinopril Drug Allergy [address] [facility] Repository (1 source) Mold Extract Drug Allergy [address] [facility] Repository (1 source) cat dander Drug allergy (disorder) [address] [facility] Repository Medications Completed/Discontinued Medications Medication Drug Class(es) Dates Sig (Normalized) Sig (Original) ALBUTEROL SULFATE (2 sources) beta2-Adrenergic Agonist Start: 12-22-2014 PROAIR HFA 108 (90 Base) MCG/ACT AERS ALBUTEROL SULFATE [id number] Urbano Cordova Start: 12-22-2014 PROAIR HFA 108 (90 Base) MCG/ACT AERS ALBUTEROL SULFATE [id number] Urbano Cordova ATORVASTATIN CALCIUM TABS (2 sources) HMG-CoA Reductase Inhibitor ATORVASTATIN CALCIUM TABS ATORVASTATIN CALCIUM TABS [id number] Arleen Florian MACHINERY MOVER FLUTICASONE-SALMETEROL (2 sources) Corticosteroid, beta2-Adrenergic Agonist Start: 12-22-2014 ADVAIR DISKUS 250-50 MCG/DOSE AEPB FLUTICASONE-SALMETEROL [id number] Urbano Cordova Start: 12-22-2014 ADVAIR DISKUS 250-50 MCG/DOSE AEPB FLUTICASONE-SALMETEROL 35512491459 Urbano Cordova GLIMEPIRIDE TABS (2 sources) Sulfonylurea GLIMEPIRIDE TABS GLIMEPIRIDE TABS 66727591892 Arleen Florian NP LISINOPRIL TABS (2 sources) Angiotensin Converting Enzyme Inhibitor LISINOPRIL TABS LISINOPRIL TABS 23678857426 Arleen Florian NP metFORMIN hydrochloride 500 mg oral tablet (2 sources) Biguanide take 1 tablet by mouth twice daily GLUCOPHAGE 500 MG TABS One tablet by mouth twice daily METFORMIN HCL 62512565534 Arleen Florian NP montelukast 10 mg oral tablet (2 sources) Leukotriene Receptor Antagonist Start: 5 SINGULAIR 10 MG TABS MONTELUKAST SODIUM [id number] Urbano Cordova Problems Active Problems Problem Classification Problem Date Documented Da te Episodic/Chronic Diabetes mellitus with complications (1 source) Type 2 diabetes mellitus with hyperglycemia; Translations: [Type 2 diabetes mellitus with hyperglycemia] Onset: 08-12-2023 Chronic Diabetes mellitus without complication (2 sources) Type 2 diabetes mellitus well controlled; Translations: [Type 2 diabetes mellitus without complications] Onset: 07-21-2016 07-21-2016 Chronic Other gastrointestinal disorders (2 sources) Other fecal abnormalities; Translations: [Other fecal abnormalities] Onset: 06-18-2024 Episodic Other screening for suspected conditions (not mental disorders or infectious disease) (1 source) Encounter for screening for malignant neoplasm of colon; Translations: [Encounter for screening for malignant neoplasm of colon] Onset: 06-28-2024 Episodic Past or Other Problems Problem Classification Problem Date Documented Da te Episodic/Chronic Other connective tissue disease (3 sources) Impingement syndrome of shoulder region; Translations: [Pain in right shoulder] Onset: 12-22-2014 01-26-2015 Episodic Other connective tissue disease (4 sources) Adhesive capsulitis of unspecified shoulder; Translations: [Bicipital tenosynovitis] Onset: 12-22-2014 02-03-2015 Episodic Other connective tissue disease (1 source) Bicipital tenosynovitis; Translations: [Bicipital tendinitis, unspecified shoulder] Onset: 12-22-2014 12-28-2014 Episodic Other connective tissue disease (1 source) Other affections of shoulder region, not elsewhere classified; Translations: [Other affections of shoulder region, not elsewhere classified] Onset: 12-22-2014 12-28-2014 Episodic Other non-traumatic joint disorders (1 source) Pain in right shoulder; Translations: [Pain in right shoulder] Onset: 12-22-2014 12-22-2014 Episodic Sprains and strains (2 sources) Sprain of unspecified rotator cuff capsule, initial encounter; Translations: [Sprain of unspecified rotator cuff capsule, initial encounter] Onset: 12-22-2014 12-28-2014 Episodic Results Test Name Value Interpretation Reference Range Facility Bedside Glucoseon 06-17-2024 FINGERSTICK GLU 146 mg/dL High 74-[address] [facility] Comment on above: Result Comment: NORIS INFANTE OF PATIENT CARE PER NURSING PROTOCOL Performed By: #### L 501.080 ####[facility] [address] [facility] [place], [address] Colonoscopy Reporton 025 Colonoscopy Report [facility] Medical Records Department [address] [place] [address] Colonoscopy Report MR#: [id number] Acct: [id number] Name: URBANO DIEZ Rep #: [id number] : 1970 54 From: Guy Calero DO PCP: Dr. Peterson Smith MD Status:[facility] Patient Name: Urbano Diez Procedure Date: 06/17/2024 11:47 AM Date of : 1970 Age: 54 Procedure: Colonoscopy Indications: Screening for colorectal malignant neoplasm Providers: Guy Friend, DO Medicines: Monitored Anesthesia Care Patient Profile: This is a 54 year old male. Refer to note in patient chart for documentation of history and physical. Last Colonoscopy: none. The patient's first colonoscopy is today. Complications: No immediate complications. Procedure: Pre-Anesthesia Assessment: - Prior to the procedure, a History and Physical was performed, and patient medications and allergies were reviewed. The patient is competent. The risks and benefits of the procedure and the sedation options and risks were discussed with the patient. All questions were answered and informed consent was obtained. Patient identification and proposed procedure were verified by the physician in the pre-procedure area. Mental Status Examination: alert and oriented. Airway Examination: normal oropharyngeal airway and neck mobility. Respiratory Examination: clear to auscultation. CV Examination: normal. Prophylactic Antibiotics: The patient does not require prophylactic antibiotics. Prior Anticoagulants: The patient has taken no anticoagulant or antiplatelet agents except for NSAID medication. ASA Grade Assessment: II - A patient with mild systemic disease. After reviewing the risks and benefits, the patient was deemed in satisfactory condition to undergo the procedure. The anesthesia plan was to use monitored anesthesia care (MAC). Immediately prior to administration of medications, the patient was re-assessed for adequacy to receive sedatives. The heart rate, respiratory rate, oxygen saturations, blood pressure, adequacy of pulmonary ventilation, and response to care were monitored throughout the procedure. The physical status of the patient was re-assessed after the procedure. After I obtained informed consent, the scope was passed under direct vision. Throughout the procedure, the patient's blood pressure, pulse, and oxygen saturations were monitored continuously. The colonoscope was introduced through the anus and advanced to the cecum, identified by appendiceal orifice and ileocecal valve. The colonoscopy was performed without difficulty. The patient tolerated the procedure well. The quality of the bowel preparation was adequate. Scope In: 11:56:49 AM Scope Withdrawal Time 0 hours 15 minutes 55 seconds Scope Out: 12:16:57 PM Total Procedure Duration Time 0 hours 20 minutes 8 seconds Findings: The perianal and digital rectal examinations were normal. Multiple small and large-mouthed diverticula were found in the recto-sigmoid colon and sigmoid colon. Two sessile polyps were found in the sigmoid colon. The polyps were 10 mm in size. These polyps were removed with a hot snare. Resection and retrieval were complete. Verification of patient identification for the specimen was done. Estimated blood loss was minimal. A 5 mm polyp was found in the rectum. The polyp was sessile. The polyp was removed with a jumbo cold forceps. Resection and retrieval were complete. Verification of patient identification for the specimen was done. Estimated blood loss was minimal. Impression: - Diverticulosis in the recto-sigmoid colon and in the sigmoid colon. - Two 10 mm polyps in the sigmoid colon, removed with a hot snare. Resected and retrieved. - One 5 mm polyp in the rectum, removed with a jumbo cold forceps. Resected and retrieved. Recommendation: - Repeat colonoscopy in 3 years for surveillance. - Continue present medications. Procedure Code(s): --- Professional --- 60112, Colonoscopy, flexible; with removal of tumor(s), polyp(s), or other lesion(s) by snare technique 93024, 59, Colonoscopy, flexible; with biopsy, single or multiple CPT copyright 2021 [employer]. All rights reserved. The codes documented in this report are preliminary and upon insulation nozzleman review may be revised to meet current compliance requirements. Guy Calero DO 06/17/2024 12:30:45 PM This report has been signed electronically. Number of Addenda: 0 Note Initiated On: 06/17/2024 11:47 AM 06/17/24 1230 Date Guy Calero DO Cosigner Signature: Date (if indicated) CC: Dr. Peterson Smith MD; Guy Calero DO Date Dictated: 06/17/24 1147 Date Transcribed: Transcriptio (more content not included)... Normal [facility] MR/POSTOP.Irene 06-17-2024 MR/POSTOP.[facility] Medical Records Department [address] [place] [address] Anesthesia Postop Eval I 06/17/24 1224 MR#: [id number] Acct: [id number] Name: URBANO DIEZ ALAN Rep #: [id number] : 1970 54 From: Rian Littlejohn PCP: Dr. Peterson Smith MD Status:[facility] Y Race: C Location: [place] [address] Anesthesia: Postop Eval I Current Vital Signs Temperature: 97.1 F Pulse Rate: 87 Blood Pressure: 115/83 Respiratory Rate: 16 Pulse Ox: 98 Oxygen Delivery Method: Room Air Assessment Airway patent: Yes Spontaneous unlabored respirations: Yes Mental status: Awake and Calm nausea: No Vomiting: No Anesthesia Complication: No Fluid Hydration Crystalloid volume administer (ml): 40 Total IV fluid infused: 40 Progress Note Anesthesia document: Postop Eval 1 completed: Yes 06/17/24 1225 Date Rian Flannery Signature: Date CC: Signed Normal [facility] MR/[id number] 06-17-2024 [facility] Medical Records Department [address] [place] [address] Anesthesia Postop Eval II 06/17/24 1816 MR#: [id number] Acct: [id number] Name: MADELINEURBANO ESTEFANI Rep #: [id number] : 1970 54 From: Yariel Kimble MD PCP: Dr. Peterson Smith MD Status:[facility] Y Race: C Location: [place] Anesthesia Postop Eval I Sum Postop Eval Completion status Anesthesia document: Postop Eval 1 completed: Yes Anesthesia Postop Eval I Summary Anesthesia Postop Eval I Summary: Anesthesia Postop Eval I: Assessment Summary Airway patent Yes 06/17/24 12:25 [email or web address] Spontaneous unlabored Yes 06/17/24 12:25 [email or web address] respirations Mental status Awake,Calm 06/17/24 12:25 [email or web address] nausea No 06/17/24 12:25 [email or web address] Vomiting No 06/17/24 12:25 [email or web address] Anesthesia Postop Eval I: Fluid Summary Crystalloid volume administer 40 06/17/24 12:25 [email or web address] (ml) Colloids volume administered ( ml) Blood Product volume administered (ml) Total IV fluid infused 40 06/17/24 12:25 [email or web address] Anesthesia Postop Eval I: Summary Notes Anesthesia Complication No 06/17/24 12:25 [email or web address] Anesthesia Complication Comment: Post-operative progress note Anesthesia: Postop Eval II Evaluation Mental status: Awake and Calm Pain Level: 0 nausea: No Vomiting: No Complications Anesthesia Complication: No 06/17/241816 Date Yariel Lamin Flannery Signature: Date CC: Signed Normal [facility] Surgery Specimen Level Carolin 06-17-2024 Surgery Specimen Level IV -------- Patient Age/Sex Location Account Attending Physician -------- URBANO DIEZ/M EN [id number] Guy Calero DO -------- Specimen: [id number] Received: 06/17/24 Status: [place] Colón Num: [id number] Spec Type: COLON BX Subm Dr: Guy Calero, DO HEADER OPERATION: Colonoscopy, polypectomy PRE-OP DIAGNOSIS: Positive colorectal cancer screening using Cologuard test TISSUE SUBMITTED: A- Sigmoid colon polyp, B- Rectum polyp -------- MICROSCOPIC DIAGNOSIS A. Sigmoid colon polyp, polypectomy: A fragment of colonic mucosa, no pathologic diagnosis. Fecal material B. Rectal polyp, polypectomy: Fragments of hyperplastic polyp. SJ.mr 06/21/2024 MICROSCOPIC DESCRIPTION Slides are reviewed. GROSS DESCRIPTION A. Received in fixative is one container labeled with the patient's name and designated Sigmoid colon polyp. The specimen consists of two irregular fragments of light chiu soft tissue that in aggregate measure 0.6 x 0.4 x 0.1 cm. The specimen is totally submitted in one cassette. B. Received in fixative is one container labeled with the patient's name and designated Rectum polyp. The specimen consists of multiple irregular fragments of light chiu soft tissue that in aggregate measure 2.1 x 0.5 x 0.2 cm. The specimen is totally submitted in one cassette. mr 06/18/2024 TC:1 CPT:35025u7 -------- Patient Age/Sex Location Account Attending Physician -------- URBANO DIEZ 54/M EN [id number] Guy Calero DO -------- Signed (signature on file) Dr. Blake Nava MD 06/21/24 1326 -------- Normal [facility] Comment on above: Performed By: #### P SUIV #### [facility] Laboratory [facility] [place], [address] PSA Total+%Freeon 06-03-2024 PSA, FREE 0.75 ng/mL Normal N/A [facility] Comment on above: Order Comment: Order Date: 09/10/23Order Info: [id number] - PSAT%F Result Comment: Roch e ECLIA methodology. Performed By: #### L 3110.0500 ####[facility] [address] [place], [place], [id number] PSA, FREE % 17.[address] Normal . [facility] Comment on above: Order Comment: Order Date: 09/10/23Order Info: [id number] - PSAT%F Result Comment: The table below lists the probability of prostate cancer for men with non-suspicious CHUN results and total PSA between 4 and 10 ng/mL, by patient age (Salinas et al, JESSICA 1998, 279:1542). % Free PSA 50-64 yr 65-75 yr 0.00-10.00% 56% 55% 10.01-15.00% 24% 35% 15.01-20.00% 17% 23% 20.01-25.00% 10% 20% >25.00% 5% 9% Please note: Salinas et al did not make specific recommendations regarding the use of percent free PSA for any other population of men. Performed at: [employer] [id number] Oliver Filter Operator: Fabian Brambila PhD, Phone: [phone] Performed By: #### L 3110.0500 ####[facility] [address] [place], [place], [address] PSA, TOTAL ULTR 4.380 ng/mL Abnormal 0.000-4.[address] [facility] Comment on above: Order Comment: Order Date: 09/10/23Order Info: [id number] - PSAT%F Result Comment: Chuy JONES methodology. According to the [employer], Serum PSA should decrease and remain at undetectable levels after radical prostatectomy. The AUA defines biochemical recurrence as an initial PSA value 0.200 ng/mL or greater followed by a subsequent confirmatory PSA value 0.200 ng/mL or greater. Values obtained with different assay methods or kits cannot be used interchangeably. Results cannot be interpreted as absolute evidence of the presence or absence of malignant disease. Performed By: #### L 3110.0500 ####[facility] [address] [place], [address] CBC W/Diff, Automatedon 01-2 Absolute Lymph 1.31 X10 3/uL Normal 0.83-4.[address] [facility] Comment on above: Performed By: #### L 100.0100 ####[facility] [address] [place], [address] Absolute Neut 6.6 X10 3/uL Normal 2.0-7.[address] [facility] Comment on above: Performed By: #### L 100.0100 ####[facility] [address] [place], [address] Basophils/100 WBC (Bld) 0.7 % Normal 0-[address] [facility] Comment on above: Performed By: #### L 100.0100 ####[facility] [address] [place], [address] Eosinophils/100 WBC (Bld) 0.8 % Normal 0-[address] [facility] Comment on above: Performed By: #### L 100.0100 ####[facility] [address] [place], [address] Erythrocyte distribution width (RBC) [Ratio] 12.4 % Normal 11.6-14.[address] [facility] Comment on above: Performed By: #### L 100.0100 ####[facility] [address] [place], [address] Hematocrit (Bld) [Volume fraction] 50.1 % Normal 40-[address] [facility] Comment on above: Performed By: #### L 100.0100 ####[facility] [address] [place], [address] Hemoglobin (Bld) [Mass/Vol] 17.8 g/dL High 13.0-16.[address] [facility] Comment on above: Performed By: #### L 100.0100 ####[facility] [address] [place], [address] IG% 1.200 High 0.0-0.[address] [facility] Comment on above: Result Comment: IG% - Immature Granulocytes (promyelocytes, myelocytes and metamyelocytes) > 1% indicates that a LEFT SHIFT is Present. Performed By: #### L 100.0100 ####[facility] [address] [place], [address] Lymphocytes/100 WBC (Bld) 15.1 % Low 19-[address] [facility] Comment on above: Performed By: #### L 100.0100 ####[facility] [address] [place], [address] MCH (RBC) [Entitic mass] 31.7 pg Normal 27.0-32.[address] [facility] Comment on above: Performed By: #### L 100.0100 ####[facility] [address] [place], [address] MCHC (RBC) [Mass/Vol] 35.5 g/dL Normal 32-36 [facility] Comment on above: Performed By: #### L 100.0100 ####[facility] [address] [place], [address] MCV (RBC) [Entitic vol] 89.3 fL Normal 80-[address] [facility] Comment on above: Performed By: #### L 100.0100 ####[facility] [address] [place], [address] Monocytes/100 WBC (Bld) 6.0 % Normal 0-[address] [facility] Comment on above: Performed By: #### L 100.0100 ####[facility] [address] [place], [address] Neutrophils/100 WBC (Bld) 76.2 % High 47-[address] [facility] Comment on above: Performed By: #### L 100.0100 ####[facility] [address] [place], [address] Nucleated RBC (Bld) [#/Vol] 0 10*3/uL Normal 0-[address] [facility] Comment on above: Performed By: #### L 100.0100 ####[facility] [address] [place], [address] Platelet mean volume (Bld) [Entitic vol] 10.4 fL Normal 6.2-12.[address] [facility] Comment on above: Performed By: #### L 100.0100 ####[facility] [address] [place], [address] Platelets (Bld) [#/Vol] 163 10*3/uL Normal 150-[address] [facility] Comment on above: Performed By: #### L 100.0100 ####[facility] [address] [place], [address] RBC (Bld) [#/Vol] 5.61 10*6/uL Normal 4.6-6.2 [facility] Comment on above: Performed By: #### L 100.0100 ####[facility] [address] [place], [address] RDW SD 40.6 fl Normal 35.1-43.[address] [facility] Comment on above: Performed By: #### L 100.0100 ####[facility] [address] [place], [address] WBC (Bld) [#/Vol] 8.7 10*3/uL Normal 4.4-11.0 [facility] Comment on above: Performed By: #### L 100.0100 ####[facility] [address] [place], [address] Gastroenterology Visit Repor ton 06-02-2024 Gastroenterology Visit Report [facility] Gastroenterology [address] [place] [address] OFFICE VISIT Date of Service: 06/02/24 MR#: [id number] Acct: [id number] Name: URBANO DIEZ Rep #: [id number] : 1970 Provider: OMID hooper Age/Sex: 54/M Location: [facility] Status: Signed Intake Vital Signs 06/02/24 10:14 Height 6 ft 1 in Weight: 222 lb 6 oz BMI 29.3 BP 150/93 H Respiration 18 Pulse 98 Pulse Oximetry (%) 90 Oxygen Delivery Method room air Intake Visit Reasons: Positive Cologuard Chief Complaint: positive cologuard Fagoting Machine Operator Required: No Is patient in pain?: No Allergies lisinopril Allergy (Intermediate, Verified 06/02/24 10:11) cough amoxicillin Adverse Reaction (Intermediate, Verified 06/02/24 10:11) Hives cat dander (cats) Adverse Reaction (Intermediate, Verified 06/02/24 10:11) Other mold (mold spores) Adverse Reaction (Intermediate, Verified 06/02/24 10:11) Other Medications ???Medication ???Instructions ???Recorded ???Confirmed ???Type albuterol sulfate 90 mcg/actuation 2 puff inhalation Q6H PRN 06/01/24 06/01/24 History aerosol inhaler fluticasone 100 mcg-salmeterol 50 1 inh inhalation BID 06/01/24 06/01/24 History mcg/dose blistr powdr for inhalation (Wixela Inhub) glimepiride 4 mg tablet 4 mg PO BID 06/01/24 06/01/24 History losartan 100 mg tablet 100 mg PO QDAY 06/01/24 06/01/24 History montelukast 10 mg tablet 10 mg PO QDAY 06/01/24 06/01/24 History (Singulair) tadalafil 20 mg tablet (Cialis) 20 mg PO .Q72HR PRN 06/01/24 06/01/24 History dapagliflozin propanediol 10 mg 10 mg PO QDAY 06/02/24 06/02/24 History tablet (Farxiga) metformin 1,000 mg tablet 1,000 mg PO BID 06/02/24 06/02/24 History peg 3350-sod sulf,ssifs-bfl-uew See Rx Instructions PO .COMPLEX #2 06/02/24 06/02/24 Rx 178.7-7.3-0.5-1.12-0. 9 gram oral mL soln (Suflave) semaglutide 1 mg/dose (2 mg/1.5 1 mg subcut QWEEK 06/02/24 06/02/24 History mL) subcutaneous pen injector Have you fallen in the past year?: No Nurse's Note: The positive cologard result was from a year ago. He was just notified by physician. No symptoms. Father had colon cancer after he was treated with radiation for prostate cancer. [facility] Medical History Torn ACL (anterior cruciate ligament) Family History Grandfather Heart disease Grandmother Breast cancer Social History household members: spouse and children Smoking Status: Never smoker what type of physical activity do you participate in: walking frequency: 1-2 times per week HPI HPI Chief Complaint: positive cologuard Details: URBANO DIEZ, is a 54 M who presents to the office today for - March 2023 - positive Cologuard - denies any change in bowel habits, pain or bleeding - started Ozempic 1 year ago - 20lb weight loss - denies any N/V - family h/o colon cancer in his father ROS Const Constitutional: No fatigue, fever(s) or weight change ENT ENT: No difficulty swallowing Gastro GI: No abdominal pain, belching, bloating, change in bowel habits, change in stool character, coffee ground emesis, constipation, cramping, diarrhea, heartburn, difficulty swallowing, feeling full early, excessive flatus, incontinent of stools, Vomiting blood/hematemesis, Blood in stool, loose stools, Black,tarry stools, nausea/dyspepsia, pain with swallowing, vomiting or other Musc Musculoskeletal: No joint pain Skin Skin: No yellowing of the eye or itchy eyes Psych Psychiatric: No anxiety and No depression Endo Endocrine: No fatigue or weight change Aller/Imm Allergy/Immunologic: No itchy eyes Vinny/Lymp Hematologic/Lymphatic : No easy bleeding or easy bruising Exam Const General: cooperative, healthy appearing, no acute distress and well developed Nutritional Appearance: average body habitus and well nourished Orientation: alert and oriented x3 HENMT Head: normocephalic Ears: hearing grossly normal bilaterally Mouth: moist mucous membranes Teeth and gingiva: dentition normal Eyes Conjunctivae: conjunctivae normal Sclera: sclerae normal Neck Neck: normal visual inspection, full ROM and trachea midline Resp Effort Inspection: normal respiratory effort, able to speak in complete sentences and symmetric chest movement Auscultation: Bilateral: Clear to Auscultation Cardio Palpation: normal PMI Rate: regular rate Rhythm: regular rhythm Heart Sounds: S1 normal and S2 normal GI Inspection: normal to inspection Auscultation: normal bowel sounds Palpation: soft and no hepatosplenomegaly Rectal Exam: deferred Skin General: no rashes or lesions noted and turgor no (more content not included)... Normal [facility] Basophil percentageOrdered B y: Peterson Philiparjun on 08-07-2023 Bilirubin [Mass/Vol] 1.10 mg/dL 0.20-1.00 [facility] Comment on above: For patients on eltr ombopag therapy, use of Dim[place] TBIL is not recommended. Chloride [Moles/Vol] 107 mmol/L 98-107 [facility] Cholesterol [Mass/Vol] 109 mg/dL <[address] [facility] Comment on above: <200 mg/dL Desirable 200-240 mg/dL Borderline >240 mg/dL High Risk Glucose [Mass/Vol] 130 mg/dL 74-106 [facility] Comment on above: Fasting Glucose resu lt greater than or equal to 126 mg/dL suggests DIABETES MELLITUS per A.D.A. criteria. Potassium [Moles/Vol] 4.3 mmol/L 3.5-5.1 [facility] Protein [Mass/Vol] 7.3 g/dL 6.4-8.2 [facility] Sodium [Moles/Vol] 138 mmol/L 136-145 [facility] Testosterone [Mass/Vol] 362.38 ng/dL [facility] Comment on above: CENTRAL 90% REFERENC E RANGES MALE AGE <50 197.44 - 669.58 ng/dL MALE AGE > or = 50 187.72 - 684.19 ng/dL FEMALE AGE <50 8.38 - 35.01 ng/dL FEMALE AGE > or = 50 <7.00 - 35.92 ng/dL Effective as of 11/28/20 Triglyceride [Mass/Vol] 103 mg/dL <[address] [facility] Comment on above: The drugs N-Acetylcy steine and Metamizole may falsely depress this assay.Serum Triglycerides Reference Interval Normal <150 mg/dL Borderline high 150 - 199 mg/dL High 200 - 499 mg/dL Very High > or = 500 mg/dL Comprehensive Metabolic Prof ilon 08-07-2023 Albumin [Mass/Vol] 3.8 g/dL Normal 3.2-5.0 [facility] Comment on above: Order Comment: Order Date: 03/11/23 Order Info: 0786- - CMP Order Info: - LIPID Order Info: 3 - TSH Order Info: [id number] - PSA Performed By: #### L 501.9910, L509.3000, L500.4050, L500.4100, L501.9520 #### [facility] [address] [place], [address] Albumin/Globulin [Mass ratio] 1.1 {ratio} Normal 0.9-2.[address] [facility] Comment on above: Order Comment: Order Date: 03/11/23 Order Info: 0786- - CMP Order Info: - LIPID Order Info: 3 - TSH Order Info: [id number] - PSA Performed By: #### L 501.9910, L509.3000, L500.4050, L500.4100, [id number] #### [facility] [address] [place], [address] ALK P 74 U/L Normal 45-[address] [facility] Comment on above: Order Comment: Order Date: 03/11/23 Order Info: 0786- - CMP Order Info: [id number] - LIPID Order Info: 3 - TSH Order Info: [id number] - PSA Performed By: #### L [id number], L509.3000, L500.4050, L500.4100, [id number] #### [facility] [address] [place], [address] ALT [Catalytic activity/Vol] 38 U/L Normal 16-[address] [facility] Comment on above: Order Comment: Order Date: 03/11/23 Order Info: 86-1 - CMP Order Info: [id number] - LIPID Order Info: 301-3 - TSH Order Info: 7-1 - PSA Performed By: #### L 501.9910, L509.3000, L500.4050, L500.4100, [id number] #### [facility] [address] [place], [address] AST [Catalytic activity/Vol] 14 U/L Low 15-[address] [facility] Comment on above: Order Comment: Order Date: 03/11/23 Order Info: 785- - CMP Order Info: - LIPID Order Info: 3 - TSH Order Info: 1 - PSA Performed By: #### L 501.9910, L509.3000, L500.4050, L500.4100, [id number] #### [facility] [address] [place], [address] Bilirubin [Mass/Vol] 1.10 mg/dL High 0.20-1.00 [facility] Comment on above: Order Comment: Order Date: 03/11/23 Order Info: 785- - CMP Order Info: [id number] - LIPID Order Info: 3 - TSH Order Info: [id number] - PSA Result Comment: For patients on eltrombopag therapy, use of Dim[place] TBIL is not recommended. Performed By: #### L 501.9910, L509.3000, L500.4050, L500.4100, L501.9520 #### [facility] [address] [place], [address] BUN/CRE 18.6 RATIO Normal 10-[address] [facility] Comment on above: Order Comment: Order Date: 03/11/23 Order Info: 785-05 - CMP Order Info: - LIPID Order Info: [id number] - TSH Order Info: 2856-05 - PSA Performed By: #### L 501.9910, L509.3000, L500.4050, L500.4100, [id number] #### [facility] [address] [place], [address] CA,Total 8.7 mg/dL Normal 8.5-10.[address] [facility] Comment on above: Order Comment: Order Date: 03/11/23 Order Info: 785-05 - CMP Order Info: - LIPID Order Info: [id number] - TSH Order Info: 2856-05 - PSA Performed By: #### L 501.9910, L509.3000, L500.4050, L500.4100, [id number] #### [facility] [address] [place], [address] Chloride [Moles/Vol] 107 mmol/L Normal 98-107 [facility] Comment on above: Order Comment: Order Date: 03/11/23 Order Info: 785-05 - CMP Order Info: - LIPID Order Info: [id number] - TSH Order Info: 2856-05 - PSA Performed By: #### L 501.9910, L509.3000, L500.4050, L500.4100, L501.9520 #### [facility] [address] [place], [address] CO2 [Moles/Vol] 28.0 mmol/L Normal 21.0-32.[address] [facility] Comment on above: Order Comment: Order Date: 03/11/23 Order Info: 785-05 - CMP Order Info: [id number] - LIPID Order Info: [id number] - TSH Order Info: 1 - PSA Performed By: #### L 501.9910, L509.3000, L500.4050, L500.4100, [id number] #### [facility] [address] [place], [address] Creatinine [Mass/Vol] 1.02 mg/dL Normal 0.70-1.30 [facility] Comment on above: Order Comment: Order Date: 03/11/23 Order Info: 785-1 - CMP Order Info: [id number] - LIPID Order Info: 3 - TSH Order Info: 2856-05 - PSA Result Comment: The validity of the calculated GFR GFRAA in patients over 70 years has not been determined. Clinical correlation is essential. Performed By: #### L 501.9910, L509.3000, L500.4050, L500.4100, L501.9520 #### [facility] [address] [place], [address] EST GFR - AA 99 mL/min Normal >[address] [facility] Comment on above: Order Comment: Order Date: 03/11/23 Order Info: 785-05 - CMP Order Info: - LIPID Order Info: [id number] - TSH Order Info: 2856-05 - PSA Result Comment: Afri can Martiniquais GFR Calc Performed By: #### L 501.9910, L509.3000, L500.4050, L500.4100, L501.9520 #### [facility] [address] [place], [address] GAP 3 Low 5-[address] [facility] Comment on above: Order Comment: Order Date: 03/11/23 Order Info: 785-05 - CMP Order Info: - LIPID Order Info: 3 - TSH Order Info: [id number] - PSA Performed By: #### L 501.9910, L509.3000, L500.4050, L500.4100, L501.9520 #### [facility] [address] [place], [address] GFR/1.73 sq M.predicted among non-blacks MDRD (S/P/Bld) [Vol rate/Area] 82 mL/min/{1.73_m2} Normal >[address] [facility] Comment on above: Order Comment: Order Date: 03/11/23 Order Info: 785-05 - CMP Order Info: - LIPID Order Info: 3 - TSH Order Info: 2856-05 - PSA Result Comment: Non- GFR Calc Performed By: #### L 501.9910, L509.3000, L500.4050, L500.4100, L501.9520 #### [facility] [address] [place], [address] Globulin (S) [Mass/Vol] 3.5 g/dL Normal 2.2-4.[address] [facility] Comment on above: Order Comment: Order Date: 03/11/23 Order Info: 785-05 - CMP Order Info: - LIPID Order Info: [id number] - TSH Order Info: 2856-05 - PSA Performed By: #### L 501.9910, L509.3000, L500.4050, L500.4100, L501.9520 #### [facility] [address] [place], [address] Glucose [Mass/Vol] 130 mg/dL High 74-106 [facility] Comment on above: Order Comment: Order Date: 03/11/23 Order Info: 785-05 - CMP Order Info: [id number] - LIPID Order Info: 3 - TSH Order Info: 2856-05 - PSA Result Comment: Fast ing Glucose result greater than or equal to 126 mg/dL suggests DIABETES MELLITUS per A.D.A. criteria. Performed By: #### L 501.9910, L509.3000, L500.4050, L500.4100, L501.9520 #### [facility] [address] [place], [address] Potassium [Moles/Vol] 4.3 mmol/L Normal 3.5-5.1 [facility] Comment on above: Order Comment: Order Date: 03/11/23 Order Info: 785-05 - CMP Order Info: - LIPID Order Info: [id number] - TSH Order Info: 1 - PSA Performed By: #### L 501.9910, L509.3000, L500.4050, L500.4100, L501.9520 #### [facility] [address] [place], [address] Sodium [Moles/Vol] 138 mmol/L Normal 136-145 [facility] Comment on above: Order Comment: Order Date: 03/11/23 Order Info: 785-05 - CMP Order Info: - LIPID Order Info: [id number] - TSH Order Info: 2856-05 - PSA Performed By: #### L 501.9910, L509.3000, L500.4050, L500.4100, L501.9520 #### [facility] [address] [place], [address] T PROT 7.3 g/dL Normal 6.4-8.[address] [facility] Comment on above: Order Comment: Order Date: 03/11/23 Order Info: 785-05 - CMP Order Info: - LIPID Order Info: [id number] - TSH Order Info: 2856-05 - PSA Performed By: #### L 501.9910, L509.3000, L500.4050, L500.4100, L501.9520 #### [facility] [address] [place], [address] Urea nitrogen [Mass/Vol] 19 mg/dL High 7-[address] [facility] Comment on above: Order Comment: Order Date: 03/11/23 Order Info: 785-05 - CMP Order Info: - LIPID Order Info: [id number] - TSH Order Info: 1 - PSA Performed By: #### L 501.9910, L509.3000, L500.4050, L500.4100, L501.9520 #### [facility] [address] [place], [place], [id number] Laboratory - Chemistry and C hemistry - challengeOrdered By: Peterson Smith on 08-07-2023 Albumin/Globulin [Mass ratio] 1.1 {ratio} 0.9-2.[address] [facility] ALP [Catalytic activity/Vol] 74 U/L 45-[address] [facility] ALT [Catalytic activity/Vol] 38 U/L 16-[address] [facility] Cholesterol in HDL [Mass/Vol] 41 mg/dL >[address] [facility] Comment on above: The drugs N-Acetylcy steine and Metamizole may falsely depress this assay. Reference Range HDL <40 mg/dL Low HDL Cholesterol HDL >or= 60 mg/dL High HDL Cholesterol Cholesterol in LDL [Mass/Vol] 47 mg/dL 0-[address] [facility] CO2 [Moles/Vol] 28.0 mmol/L 21.0-32.[address] [facility] Globulin (S) [Mass/Vol] 3.5 g/dL 2.2-4.[address] [facility] Urea nitrogen/Creatinine [Mass ratio] 18.6 mg/mg 10-[address] [facility] Lipid Profileon 08-07-2023 Cholesterol [Mass/Vol] 109 mg/dL Normal [address] [facility] Comment on above: Order Comment: Order Date: 03/11/23 Order Info: 0786-1 - CMP Order Info: [id number] - LIPID Order Info: [id number] - TSH Order Info: 2857- - PSA Result Comment: <200 mg/dL Desirable 200-240 mg/dL Borderline >240 mg/dL High Risk Performed By: #### L 501.9910, L509.3000, L500.4050, L500.4100, L501.9520 #### [facility] [address] [place], [place], [id number] Cholesterol in HDL [Mass/Vol] 41 mg/dL Normal [facility] Comment on above: Order Comment: Order Date: 03/11/23 Order Info: 0786-1 - CMP Order Info: [id number] - LIPID Order Info: 301-3 - TSH Order Info: 285-1 - PSA Result Comment: The drugs N-Acetylcysteine and Metamizole may falsely depress this assay. Reference Range HDL <40 mg/dL Low HDL Cholesterol HDL >or= 60 mg/dL High HDL Cholesterol Performed By: #### L 501.9910, L509.3000, L500.4050, L500.4100, L501.9520 #### [facility] [address] [place], [address] Cholesterol in LDL [Mass/Vol] 47 mg/dL Normal 0-[address] [facility] Comment on above: Order Comment: Order Date: 03/11/23 Order Info: 07-1 - CMP Order Info: [id number] - LIPID Order Info: 3 - TSH Order Info: 2856-05 - PSA Performed By: #### L 501.9910, L509.3000, L500.4050, L500.4100, L501.9520 #### [facility] [address] [place], [address] Cholesterol in VLDL [Mass/Vol] 21 mg/dL Normal 5-[address] [facility] Comment on above: Order Comment: Order Date: 03/11/23 Order Info: 0786 - CMP Order Info: - LIPID Order Info: [id number] - TSH Order Info: 2856-05 - PSA Performed By: #### L 501.9910, L509.3000, L500.4050, L500.4100, L501.9520 #### [facility] [address] [place], [address] Triglyceride [Mass/Vol] 103 mg/dL Normal [facility] Comment on above: Order Comment: Order Date: 03/11/23 Order Info: 0786 - CMP Order Info: [id number] - LIPID Order Info: 3 - TSH Order Info: 2856-05 - PSA Result Comment: The drugs N-Acetylcysteine and Metamizole may falsely depress this assay. Serum Triglycerides Reference Interval Normal <150 mg/dL Borderline high 150 - 199 mg/dL High 200 - 499 mg/dL Very High > or = 500 mg/dL Performed By: #### L 501.9910, L509.3000, L500.4050, L500.4100, L501.9520 #### [facility] [address] [place], [place], [id number] No Panel InformationOrdered By: Peterson Smith on 08-07-2023 Estimated GFR (MDRD) Amer 99 mL/min >[address] [facility] Comment on above: GFR Calc Estimated GFR (MDRD) Non-Af Amer 82 mL/min >[address] [facility] Comment on above: Non- GFR Calc Prostate Specific Antigen Screen 4.06 ng/mL 0.00-4.[address] [facility] Comment on above: This test was perfor med using the TPSA assay method for theProperati chemistry system. Values obtained with differentassay methods cannot be used interchangably.When changing PSA assays in the course of monitoring apatient, additional sequential testing should be carriedout to confirm baseline values. VLDL Cholesterol 21 mg/dL 5-[address] [facility] PSA,Total - Annual Screenon 08-07-2023 PSA,TOT SCREEN 4.06 ng/mL High 0.00-4.[address] [facility] Comment on above: Order Comment: Order Date: 03/11/23Order Info: 0786-1 - CMPOrder Info: [id number] - LIPIDOrder Info: [id number] - TSHOrder Info: 2857-1 - PSA Result Comment: This test was performed using the TPSA assay method for the [employer]ati chemistry system. Values obtained with different assay methods cannot be used interchangably. When changing PSA assays in the course of monitoring a patient, additional sequential testing should be carried out to confirm baseline values. Performed By: #### L 501.9910, L509.3000, L500.4050, L500.4100, L501.9520 ####[facility] [id number] [place], [place], [id number] Serum or plasma calcium jonah urement (mass/volume)Ordered By: Peterson Smith on 08-07-2023 Calcium [Mass/Vol] 8.7 mg/dL 8.5-10.1 [facility] Serum or plasma creatinine m easurement (mass/volume)Ordered By: Peterson Smith on 08-07-2023 Creatinine [Mass/Vol] 1.02 mg/dL 0.70-1.30 [facility] Comment on above: The validity of the calculated GFR & GFRAA in patients over 70 years has not been determined. Clinical correlation is essential. Serum or plasma thyroid stim ulating hormone (TSH) measurement (units/volume)Ordered By: Peterson Smith on 08-07-2023 TSH Qn 1.28 uIU/mL 0.358-3.[address] [facility] Serum or plasma urea nitroge n measurement (mass/volume)Ordered By: Peterson Smith on 08-07-2023 Urea nitrogen [Mass/Vol] 19 mg/dL 7-[address] [facility] Testosterone, Serum Totalon 08-07-2023 Testosterone [Mass/Vol] 362.38 ng/dL Normal [facility] Comment on above: Order Comment: Order Date: 03/11/23 Order Info: [id number] - JOURDAN Result Comment: CENT RAL 90% REFERENCE RANGES MALE AGE <50 197.44 - 669.58 ng/dL MALE AGE > or = 50 187.72 - 684.19 ng/dL FEMALE AGE <50 8.38 - 35.01 ng/dL FEMALE AGE > or = 50 <7.00 - 35.92 ng/dL Effective as of 11/28/20 Performed By: #### L 501.9910, L509.3000, L500.4050, L500.4100, L501.9520 #### [facility] [address] [place], [place] [address], [address] Thin prep Papanicolaou smear with manual screeningOrdered By: Peterson Smith on 08-07-2023 Thin prep Papanicolaou smear with manual screening 3.8 g/dL 3.2-5.[address] [facility] Thin prep Papanicolaou smear with manual screening 14 U/L 15-[address] [facility] Thin prep Papanicolaou smear with manual screening 3 5-[address] [facility] Thyroid Stim Hormone (TSH)on 08-07-2023 TSH 1.28 uIU/mL Normal 0.358-3.[address] [facility] Comment on above: Order Comment: Order Date: 03/11/23 Order Info: 0786-1 - CMP Order Info: [id number] - LIPID Order Info: [id number] - TSH Order Info: [id number] - PSA Performed By: #### L 501.9910, L509.3000, L500.4050, L500.4100, L501.9520 #### [facility] [address] [place], [address] Basophil percentageon 2021 Bilirubin [Mass/Vol] 1.00 mg/dL 0.20-1.00 [facility] Work Phone: Comment on above: For patients on eltr ombopag therapy, use of [place] TBIL is not recommended. Chloride [Moles/Vol] 107 mmol/L 98-107 [facility] Work Phone: Cholesterol [Mass/Vol] 114 mg/dL <[address] [facility] Work Phone: Comment on above: <200 mg/dL Desirable 200-240 mg/dL Borderline >240 mg/dL High Risk Glucose [Mass/Vol] 154 mg/dL 74-106 [facility] Work Phone: Comment on above: Fasting Glucose resu lt greater than or equal to 126 mg/dL suggests DIABETES MELLITUS per A.D.A. criteria. Potassium [Moles/Vol] 3.7 mmol/L 3.5-5.1 [facility] Work Phone: Protein [Mass/Vol] 7.1 g/dL 6.4-8.2 [facility] Work Phone: Sodium [Moles/Vol] 139 mmol/L 136-145 [facility] Work Phone: Testosterone [Mass/Vol] 370.30 ng/dL [facility] Work Phone: Comment on above: CENTRAL 90% REFERENC E RANGES MALE AGE <50 197.44 - 669.58 ng/dL MALE AGE > or = 50 187.72 - 684.19 ng/dL FEMALE AGE <50 8.38 - 35.01 ng/dL FEMALE AGE > or = 50 <7.00 - 35.92 ng/dL Effective as of 11/28/20 Triglyceride [Mass/Vol] 140 mg/dL [facility] Work Phone: Comment on above: The drugs N-Acetylcy steine and Metamizole may falsely depress this assay.Serum Triglycerides Reference Interval Normal <150 mg/dL Borderline high 150 - 199 mg/dL High 200 - 499 mg/dL Very High > or = 500 mg/dL Laboratory - Chemistry and C hemistry - challengeon 08-08-2021 ALP [Catalytic activity/Vol] 69 U/L 45-[address] [facility] Work Phone: ALT [Catalytic activity/Vol] 31 U/L 16-[address] [facility] Work Phone: CO2 [Moles/Vol] 27.0 mmol/L 21.0-32.[address] [facility] Work Phone: Globulin (S) [Mass/Vol] 3.4 g/dL 2.2-4.[address] [facility] Work Phone: Urea nitrogen/Creatinine [Mass ratio] 19.5 mg/mg 10-[address] [facility] Work Phone: No Panel Informationon 08-08 Estimated GFR (MDRD) Amer 105 mL/min >[address] [facility] Work Phone: Comment on above: GFR Calc Estimated GFR (MDRD) Non-Af Amer 87 mL/min >[address] [facility] Work Phone: Comment on above: Non- GFR Calc Thyroid Stimulating Hormone (TSH) 1.58 uIU/mL 0.358-3.[address] [facility] Work Phone: Serum or plasma albumin jonah urement (mass/volume)on 08-08-2021 Albumin [Mass/Vol] 3.7 g/dL 3.2-5.0 [facility] Work Phone: Serum or plasma albumin/glob ulin mass ratioon 08-08-2021 Albumin/Globulin [Mass ratio] 1.1 {ratio} 0.9-2.[address] [facility] Work Phone: Serum or plasma calcium jonah urement (mass/volume)on 08-08-2021 Calcium [Mass/Vol] 8.4 mg/dL 8.5-10.1 [facility] Work Phone: Serum or plasma cholesterol in HDL measurement (mass/volume)on 08-08-2021 Cholesterol in HDL [Mass/Vol] 39 mg/dL [facility] Work Phone: Comment on above: The drugs N-Acetylcy steine and Metamizole may falsely depress this assay. Reference Range HDL <40 mg/dL Low HDL Cholesterol HDL >or= 60 mg/dL High HDL Cholesterol Serum or plasma cholesterol in VLDL measurement (mass/volume)on 08-08-2021 Cholesterol in VLDL [Mass/Vol] 28 mg/dL 5-[address] [facility] Work Phone: Serum or plasma creatinine m easurement (mass/volume)on 08-08-2021 Creatinine [Mass/Vol] 0.97 mg/dL 0.70-1.30 [facility] Work Phone: Comment on above: The validity of the calculated GFR & GFRAA in patients over 70 years has not been determined. Clinical correlation is essential. Serum or plasma low density lipoprotein (LDL) cholesterol measurement (mass/volume)on 08-08-2021 Cholesterol in LDL [Mass/Vol] 47 mg/dL 0-[address] [facility] Work Phone: Serum or plasma urea nitroge n measurement (mass/volume)on 08-08-2021 Urea nitrogen [Mass/Vol] 19 mg/dL 7-[address] [facility] Work Phone: Thin prep Papanicolaou smear with manual screeningon 08-08-2021 Thin prep Papanicolaou smear with manual screening 12 U/L 15-[address] [facility] Work Phone: Thin prep Papanicolaou smear with manual screening 5 5-[address] [facility] Work Phone: Lab Report: C-Peptideon 09-0 C PEPTIDE [id number] 3.9 ng/mL 1.1-4.4 [facility] Work Phone: GE use only - for [employer] import when terms are not otherwise specified 3.9 ng/mL Invalid Interpretation Code 1.1-4.4 [facility] Work Phone: Office Visiton 12-26-2016 Documentation of current medications (procedure) Done Invalid Interpretation Code [facility] Work Phone: Protein mass conc Done [facility] Work Phone: Office Visit: New patient di abetes type 2on 07-18-2016 Adolescent depression screening assessment Adolescent depression screening assessment Invalid Interpretation Code [facility] Work Phone: Adult depression screening assessment Adolescent depression screening assessment Invalid Interpretation Code [facility] Work Phone: Fall risk assessment No Invalid Interpretation Code [facility] Work Phone: PHQ-9 quick depression assessment panel [Reported.PHQ] Adult depression screening assessment [facility] Work Phone: Tobacco smoking status NHIS Never Invalid Interpretation Code [facility] Work Phone: Tobacco smoking status NHIS Never smoker [facility] Work Phone: Tobacco use [facility] Never smoker Invalid Interpretation Code [facility] Work Phone: Vital Signs Date Time Vital Sign Value Performing Clinician Facility 12-26-2016 07:51-0400 BMI (Body Mass Index) 31 kg/m2 Arleen Florian NP [facility] Work Phone: 12-26-2016 07:51-0400 Body Temperature 98 [degF] Arleen Florian NP [facility] Work Phone: 12-26-2016 07:51-0400 BP Diastolic 85 mm[Hg] Arleen Florian NP [facility] Work Phone: 12-26-2016 07:51-0400 BP Systolic 137 mm[Hg] Arleen Florian NP [facility] Work Phone: 12-26-2016 07:51-0400 Height 185.42 cm Arleen Florian NP [facility] Work Phone: 12-26-2016 07:51-0400 Pulse (Heart Rate) 95 /min Arleen Anival ESQUIVEL [facility] Work Phone: 12-26-2016 07:51-0400 Respiratory Rate 20 /min Arleen Anival ESQU[facility]EL [facility] Work Phone: 12-26-2016 07:51-0400 Weight 106.6 kg Arleen Anival ESQU[facility]EL [facility] Work Phone: 07-18-2016 08:40-0400 Body Temperature 98.49 [degF] Arleen Anival ESQU[facility] Work Phone: 07-18-2016 08:40-0400 Height 185.42 cm Arleen Florian NP [facility] Work Phone: 07-18-2016 08:40-0400 Weight 100.79 kg Arleen Anival ESQUIVEL [facility] Work Phone: Encounters Encounter Date Encounter Type Care Provider Facility Start: 06-17-2024 ambulatory Guy Calero Facility :[facility] Start: 06-17-2024 End: 06-17-2024 ambulatory [facility] [place] Facility:[facility] Start: 06-02-2024 End: 06-02-2024 ambulatory [facility] [place] Facility:[facility] Start: 06-02-2024 End: 06-02-2024 ambulatory [facility] [place] Facility:[facility] Start: 08-07-2023 End: 08-07-[address] [facility] Work Phone: Start: 08-07-2023 End: 08-07-2023 Patient encounter procedure [facility] Work Phone: Start: 08-07-2023 End: 08-07-2023 ambulatory [facility] [place] Facility:[facility] Start: 04-10-2022 End: 04-10-[address] [facility] Work Phone: Start: 04-10-2022 End: 04-10-2022 [facility] Start: 08-08-2021 End: 08-08-2021 Patient encounter procedure [facility] Start: 05-03-2021 [facility] Procedures Date Procedure Procedure Detail Performing Clinician Start: 12-26-2016 End: 01-03-2017 C peptide [Mass/volume] in Serum or Plasma Arleen Florian NP Work Phone: Start: 02-15-2015 End: 03-01-2015 Drain/inject, joint/bursa Urbano Cordova Work Phone: Start: 12-22-2014 End: 01-05-2015 Drain/inject, joint/bursa U[facility]ano Cordova Work Phone: Plan of Treatment Date Care Activity Detail Author Start: 03-20-2017 End: 03-20-2017 Appointment Appointment [facility] Work Phone: Start: 12-26-2016 End: 12-26-2016 *MISC - Miscellaneous Lab Test #1 *MISC - Miscellaneous Lab Test #1 [facility] Work Phone: Start: 12-26-2016 End: 01-03-2017 C peptide [Mass/volume] in Serum or Plasma *CPEP - C-Peptide [facility] Work Phone: Start: 02-01-2015 End: 02-01-[address] [facility], [address] [place] [address], [id number] [facility] Work Phone: Start: 01-26-2015 End: 01-26-2015 Mri joint upr extrem w/o dye MRI Joint Upper Extremity [facility] Work Phone: Start: 12-22-2014 End: 01-05-2015 Drain/inject, joint/bursa Arthrocentesis, aspiration/injection; major joint shoulder, hip, knee [facility] Work Phone: Start: 12-22-2014 End: 01-05-2015 Office/outpatient visit, new, level 3 [id number] Ofc Vst, New Level III [facility] Work Phone: Start: 12-22-2014 End: 12-22-2014 X-ray exam of shoulder X-Ray, Shoulder [facility] Work Phone: Payers Date Payer Category Payer Unknown [id number] 2023 Self-pay [id number] 2023 Unknown [id number] Unknown [id number] 2.16.8 [id number] Unknown [id number] 2.16.8 [id number] Unknown [id number] 2.16.8 [id number] Unknown [id number] 2.16.8 [id number] Unknown [id number] 2.16.8 [id number] Social History Date Type Detail Facility Tobacco smoking stat [facility] Unknown if ever smoked [facility] Work Phone: Start: 1970 Sex Assigned At Male W [facility] Clinical Note 06-17-2024 Note Date & Type Note Facility 06-17-2024 Note [facility] Medical Records Department [address] [place] [address] History Physical Exam 06/17/24 1145 MR#: [id number] Acct: [id number] Name: URBANO DIEZ Rep #: [id number] : 1970 54 From: Guy Friend DO PCP: Dr. Peterson Smith MD Status:[facility] Location: [place] [address] HPI - General General Date of Admission: 06/17/24 Date of Service: 06/17/24 Chief Complaint: Screening colonoscopy HPI Narrative URBANO DIEZ, is a 54 M who presents today for screening colonoscopy. He has never had a colonoscopy in the past. - March 2023 - positive Cologuard - denies any change in bowel habits, pain or bleeding - started Ozempic 1 year ago - 20lb weight loss - denies any N/V - family h/o colon cancer in his father PFSH Medical History Wears glasses Wears contact lenses Diabetes Prostate disease High cholesterol Dietary restriction Non-smoker BiPAP (biphasic positive airway pressure) dependence Sleep apnea Asthma History of edema Hypertension Torn ACL (anterior cruciate ligament) Home Medications ???Medication ???Instructions ???Recorded ???Last Taken ???Type albuterol sulfate 90 mcg/actuation 2 puff inhalation Q6H PRN Unknown History aerosol inhaler shortness of breath or wheezing fluticasone 100 mcg-salmeterol 50 1 inh inhalation BID 06/01/24 Unk nown History mcg/dose blistr powdr for inhalation (Wixela Inhub) glimepiride 4 mg tablet 4 mg PO BID 06/01/24 Unknown Histo ry losartan 100 mg tablet 100 mg PO QDAY 06/01/24 06/16/24 H istory montelukast 10 mg tablet 10 mg PO QDAY 06/01/24 Unknown His tory (Singulair) tadalafil 20 mg tablet (Cialis) 20 mg PO .Q72HR PRN sexual activit y 06/01/24 Unknown History dapagliflozin propanediol 10 mg 10 mg PO QDAY 06/02/24 06/14/24 Hi story tablet (Farxiga) metformin 1,000 mg tablet 1,000 mg PO BID 06/02/24 Unknown H istory peg 3350-sod sulf,[id number] See Rx Instructions PO .COMPLEX #2 06/02/24 Unknown Rx 178.7-7.3-0.5-1.12-0.9 gram oral mL soln (Suflave) semaglutide 1 mg/dose (2 mg/1.5 1.25 mg subcut WHITAKER 06/02/24 5 History mL) subcutaneous pen injector atorvastatin 10 mg tablet 10 mg PO DAILY 06/09/24 Unknown Hi story Allergy/AdvReac Type Severity Reaction Status Date / Time amoxicillin AdvReac Intermediate Hives Verified 06/17/24 10:39 cat dander (cats) AdvReac Intermediate Other Verified 06/17/24 10:39 lisinopril AdvReac Intermediate cough Verified 06/17/24 10:39 mold (mold spores) AdvReac Intermediate Other Verified 06/17/24 10:39 Family History Grandfather Heart disease Grandmother Breast cancer Surgical History History of repair of ACL Social History household members: spouse and children Smoking Status: Never smoker what type of physical activity do you participate in: walking frequency: 1-2 times per week ROS Constitutional Constitutional: Denies fatigue, fever(s), poor appetite, weight gain or weight loss Gastrointestinal Gastrointestinal: Denies belching, bloating, change in bowel habits, change in stool character, chewing difficulty, coffee ground emesis, constipation, cramping, diarrhea, dyspepsia, dysphagia, early satiety, excessive flatus, fecal incontinence, heartburn, hematemesis, hematochezia, hemorrhoids, loose stools, melena, nausea, odynophagia, rectal bleeding, tenesmus, vomiting or weight changes Vital Signs Vital Signs Vital Signs: 06/17/24 10:40 06/17/24 10:40 06/17/24 11:13 Temperature 97.9 F 97.9 F Temperature Source Temporal Pulse Rate 98 98 Respiratory Rate 16 16 Respiratory Pattern Normal Blood Pressure 144/94 H 144/94 H Blood Pressure Mean 110 Blood Pressure Source Monitor Blood Pressure Position Semi-Fowlers Blood Pressure Location Right Arm Pulse Ox 97 97 Oxygen Delivery Method Room Air Room Air Weight Weight: 217 lb Body Mass Index (BMI) 28.6 Physical Exam Const alert, oriented x3, no apparent distress and healthy appearing General Appearance: cooperative GI normal to inspection, nondistended, normoactive bowel sounds, soft to palpation, non-tender and non- distended Percussion: normal to percussion Rectal Exam: deferred Results Lab / Micro Data Labs: Laboratory Results - last 24 hr 06/17/24 10:44: POC Glucose 146 H Assessment Plan Assessment/Plan (1) Positive colorectal cancer screening using Cologuard test: PLAN: Plan 54y/o male presents for consultation with a positive Cologuard. Cologuard was completed 03/25/ (more content not included)... [facility] SARS-CoV RNA XIAO+probe Ql (Unsp spec) 05-03-2021 Note Date & Type Note Facility 05-03-2021 SARS-CoV RNA XIAO+ probe Ql (Unsp spec) [facility] Work Phone: Coronavirus 2019 (XIAO) May 04, 2021 12:59am Detected Not Detected Patients who have a positive COVID-19 test result may nowhave treatment options. Treatment options are available forpatients with mild to moderate symptoms and forhospitalized patients. Visit our website [email or web address] for resources andinformation.This nucleic acid amplification test was developed and itsperformance characteristics determined by [facility]. Nucleic acid amplification tests include RT-PCR and TMA. This test has not been FDA cleared orapproved. This test has been authorized by FDA under anEmergency Use Authorization (EUA). This test is onlyauthorized for the duration of time the declaration thatcircumstances exist justifying the authorization of theemergency use of in vitro diagnostic tests for detection [id number] virus and/or diagnosis of COVID-19 infectionunder section 564(b)(1) of the Act, 21 U.S.C. 360bbb-3(b)(1), unless the authorization is terminated or revokedsooner.When diagnostic testing is negative, the possibility of afalse negative result should be considered in the contextof a patient's recent exposures and the presence ofclinical signs and symptoms consistent with COVID-19. Anindividual without symptoms of COVID-19 and who is notshedding SARS-CoV-2 virus would expect to have a negative(not detected) result in this assay. Comment on above: Patients who have a positive COVID-19 test result may nowhave treatment options. Treatment options are available forpatients with mild to moderate symptoms and forhospitalized patients. Visit our website [email or web address] for resources andinformation.This nucleic acid amplification test was developed and itsperformance characteristics determined by [facility]. Nucleic acid amplification tests include RT-PCR and TMA. This test has not been FDA cleared orapproved. This test has been authorized by FDA under anEmergency Use Authorization (EUA). This test is onlyauthorized for the duration of time the declaration thatcircumstances exist justifying the authorization of theemergency use of in vitro diagnostic tests for detection [id number] virus and/or diagnosis of COVID-19 infectionunder section 564(b)(1) of the Act, 21 U.S.C. 360bbb-3(b)(1), unless the authorization is terminated or revokedsooner.When diagnostic testing is negative, the possibility of afalse negative result should be considered in the contextof a patient's recent exposures and the presence ofclinical signs and symptoms consistent with COVID-19. Anindividual without symptoms of COVID-19 and who is notshedding SARS-CoV-2 virus would expect to have a negative(not detected) result in this assay. Evaluation note Note Date & Type Note Facility Evaluation note No assessment information availa [facility] Work Phone: Chief Complaint and Reason for Visit Chief Complaint NEED LAB ORDER Chief Complaint E-ORDER Summary Purpose Family History No Family History Records Found Advance Directives No Advanced Directives Records Found Additional Source Comments Goals (unrecognized section and content) Goals may be documented in a n alternate sectionGoals may be documented in an alternate sectionGoals may be documented in an alternate section Care Teams (unrecognized sec tion and content) Team Status: Active Member Role Status Dates Dr. Peterson Smith MD Family Provider Active Dr. Peterson Smith MD Primary Care Provider Acti ve Team Status: Inactive Member Role Status Dates Dr. Peterson Smith MD Primary Care Provider, Attending Provider, Referring Provider Active (unrecognized sect ion and content) No Status Records Found INFORMATION SOURCE (unrecogn ized section and content) DATE CREATED AUTHOR 06/29/2024 [facility] FOR RECORDS PERTAINING TO PATIENTS WHO ARE OR HAVE BEEN ENROLLED IN A CHEMICAL DEPENDENCY/SUBSTANCEABUSE PROGRAM, SOME INFORMATION MAY BE OMITTED. This clinical summary was aggregated from multiple sources. Caution should be exercised in using it in the provision of clinical care. This summary normalizes information from multiple sources, and as a consequence, information in this document may materially change the coding, format and clinical context of patient data. In addition, data may be omitted in some cases. CLINICAL DECISIONS SHOULD BE BASED ON THE PRIMARY CLINICAL RECORDS. [facility]. provides no warranty or guarantee of the accuracy or completeness of information in this document.
[2025-01-10 09:19] LABS: AST(SGOT) 21 U/L (<=37); Alanine Aminotransfer ALT/SGPT 30 U/L (<=46); Albumin, Serum 4.2 g/dL (3.5-5.0); Alkaline Phosphatase 90 U/L (40-129); Anion Gap 12 (5-15); BUN 19 mg/dL (4-19); BUN/Creat Ratio 21.3 RATIO (10-20); Calcium,Total 9.0 mg/dL (7.6-11.0); Carbon Dioxide 24.3 mmol/L (21.0-32.0); Chloride 103 mmol/L (98-108); Cholesterol 126 mg/dL (<=200); Globulin 2.8 g/dL (2.2-4.2); Glucose 127 mg/dL (70-99); Low Density Lipoprotein Calc. 59 mg/dL; PSA,Total- Diagnostic 4.32 ng/mL (0.00-4.00); Potassium 4.5 mmol/L (3.3-5.1); Triglycerides 109 mg/dL; Very Low Density Lipoprotein 22 mg/dL (5-40); cholesterol:hdl ratio screen 2.78
[2025-01-14 14:09] LABS: Testosterone, % Free 3.72 % (1.50-4.20); Testosterone, Free 20.35 ng/dL (5.00-21.00)
== END | disposition home or self-care (01) ==
LOC: LAB 06:59
PROVIDERS: PCP Family Medicine; Referring Provider Family Medicine; Visit Provider Family Medicine
DX: R97.20 Elevated prostate specific antigen [PSA] (principal)
CPT/HCPCS: 36415; 80053; 80061; 84153; 84402; 84403; 84443